=== PATIENT | female | born 1940 | race Caucasian/White ===

== ENCOUNTER 2017-03-31 13:53 | Outpatient (CLI) | payer MEDICARE ==
[2017-03-31 15:54] LABS: ALT (SGPT) 12 U/L (8-55); AST (SGOT) 12 U/L (5-34); Alkaline Phosphatase 47 U/L (40-150); Anion Gap 13 mmol/L (10-20); BUN (Urea Nitrogen) 21 mg/dL (9.8-20.1); Bilirubin, Total Less than 0.3 mg/dL (0.2-1.2); Calc. Creatinine Clearance 0 mL/min (70-130); Calcium 9.5 mg/dL (7.8-10.44); Carbon Dioxide 24 mmol/L (23-31); Cardiac Risk 4.2 (Less than 4.5); Chloride 103 mmol/L (98-107); Cholesterol 167 mg/dl (< 200 Desired); Estimated GFR-MDRD 67; Globulin 3.2 g/dL (2.4-3.5); Glucose 103 mg/dL (83-110); HDL Cholesterol 40 mg/dL (>60 Neg Risk); LDL Cholesterol, Calculated 89 mg/dL; Potassium 4.3 mmol/L (3.5-5.1); Protein, Total 7.2 g/dL (6.0-8.3); Sodium 136 mmol/L (136-145); Triglycerides 188 mg/dL (Less than 150)
[2017-03-31 16:17] LABS: Free T4 (Free Thyroxine) 1.03 ng/dL (0.70-1.48); Thyroid Stimulating Hormone 2.2695 uIU/mL (0.35-4.94)
[2017-03-31 16:53] LABS: Mean Corpuscular Hemoglobin 27.5 pg (27.0-31.0); Mean Platelet Volume 8.8 fL (7.4-10.4); Platelet Count 236 thou/uL (130-400); RBC Distribution Width 16.3 % (11.5-14.5); Red Blood Cell (RBC) Count 4.01 mill/uL (4.20-5.40); White Blood Cell (WBC) Count 7.8 thou/uL (4.8-10.8)
[2017-04-01 11:13] LABS: Clarity Hazy (Clear); Glucose, Urine (Dipstick) Negative (Negative); Leukocyte Moderate (Negative); Nitrite Positive (Negative); Protein, Urine (Dipstick) Negative (Neg-Trace); Specific Gravity, Urine 1.015 (1.005-1.030); pH, Urine 6.5 (5.0-9.0)
[2017-04-01 11:14] LABS: Bilirubin Negative (Negative); Blood, Urine Trace (Negative); Urobilinogen 0.2 mg/dL (0.2-1.0)
== END 2017-03-31 13:54 | disposition home or self-care (01) ==
LOC: MADLAB 13:53
PROVIDERS: ATTEND Nurse Practitioner Family
DX: E03.9 Hypothyroidism, unspecified (principal); I10 Essential (primary) hypertension; E55.9 Vitamin D deficiency, unspecified; D50.9 Iron deficiency anemia, unspecified; I82.492 Acute embolism and thrombosis of other specified deep vein of left lower extremity
CPT/HCPCS: 36415; 80053; 80061; 81003; 82306; 82728; 84439; 84443; 85027

== ENCOUNTER 2017-04-15 16:15 | Outpatient (CLI) | payer MEDICARE | END 2017-04-15 16:16 | disposition home or self-care (01) | LOC: MADLAB 16:15 | PROVIDERS: ATTEND Nurse Practitioner Family | DX: N39.0 Urinary tract infection, site not specified (principal) | CPT/HCPCS: 87077; 87086; 87186 ==

== ENCOUNTER 2017-05-03 10:39 | Outpatient (CLI) | payer MEDICARE ==
[2017-05-03 11:35] LABS: #Eosinphils 0.1 thou/uL (0.0-0.7); #Lymphocytes 1.1 thou/uL (1.20-3.40); #Monocytes 0.6 thou/uL (0.11-0.59); #Neutrophils 3.7 thou/uL (1.40-6.50); %Basophils 0.4 % (0.0-1.0); %Eosinophils 0.9 % (0.0-10.0); %Lymphocytes 19.4 % (21.0-51.0); %Monocytes 11.1 % (0.0-10.0); %Neutrophils 68.2 % (42.0-75.0); Hemoglobin 7.9 g/dL (12.0-16.0); Mean Corpuscular HGB CONC 31.2 g/dL (32.0-36.0); Mean Corpuscular Hemoglobin 26.2 pg (27.0-31.0); Mean Corpuscular Volume 84.1 fl (81.0-99.0); Mean Platelet Volume 8.7 fL (7.4-10.4); Platelet Count 233 thou/uL (130-400); RBC Distribution Width 16.3 % (11.5-14.5); White Blood Cell (WBC) Count 5.5 thou/uL (4.8-10.8)
== END 2017-05-03 10:40 | disposition home or self-care (01) ==
LOC: MADLAB 10:39
PROVIDERS: ATTEND Nurse Practitioner Acute Care
DX: D50.9 Iron deficiency anemia, unspecified (principal); I82.492 Acute embolism and thrombosis of other specified deep vein of left lower extremity
CPT/HCPCS: 36415; 82728; 85025

== ENCOUNTER 2017-08-15 10:20 | Outpatient (CLI) | payer MEDICARE ==
[2017-08-15 10:53] LABS: #Eosinphils 0.1 thou/uL (0.0-0.7); #Lymphocytes 1.2 thou/uL (1.20-3.40); #Monocytes 0.6 thou/uL (0.11-0.59); #Neutrophils 4.7 thou/uL (1.40-6.50); %Basophils 0.4 % (0.0-1.0); %Eosinophils 1.5 % (0.0-10.0); %Lymphocytes 18.1 % (21.0-51.0); %Monocytes 8.9 % (0.0-10.0); %Neutrophils 71.1 % (42.0-75.0); Hemoglobin 9.3 g/dL (12.0-16.0); Mean Corpuscular HGB CONC 32.2 g/dL (32.0-36.0); Mean Corpuscular Hemoglobin 26.8 pg (27.0-31.0); Mean Corpuscular Volume 83.2 fl (81.0-99.0); Mean Platelet Volume 8.7 fL (7.4-10.4); Platelet Count 232 thou/uL (130-400); RBC Distribution Width 16.3 % (11.5-14.5); Red Blood Cell (RBC) Count 3.47 mill/uL (4.20-5.40); White Blood Cell (WBC) Count 6.7 thou/uL (4.8-10.8)
[2017-08-15 12:14] LABS: Hemoglobin A1c 4.9 % (4.0-6.0)
== END 2017-08-15 10:21 | disposition home or self-care (01) ==
LOC: MADLAB 10:20
PROVIDERS: ATTEND Nurse Practitioner Acute Care
DX: R73.01 Impaired fasting glucose (principal)
CPT/HCPCS: 36415; 82728; 83036; 85025

== ENCOUNTER 2017-08-19 09:28 | Emergency (ER) | payer MEDICARE ==
[2017-08-19 10:35] LABS: Bilirubin Negative (Negative); Blood, Urine Trace (Negative); Clarity Clear (Clear); Glucose, Urine (Dipstick) Negative (Negative); Leukocyte Negative (Negative); Nitrite Positive (Negative); Protein, Urine (Dipstick) Negative (Neg-Trace); Specific Gravity, Urine 1.025 (1.005-1.030); Urobilinogen 0.2 mg/dL (0.2-1.0); pH, Urine 5.5 (5.0-9.0)
[2017-08-19 10:36] LABS: Bacteria/HPF 2+ HPF (None Seen); RBC/HPF 0-3 HPF (0-3); WBC/HPF 0-3 HPF (0-3)
--- NOTE | 2017-08-19 12:05 | RAD ---
RIGHT KNEE 4 VIEWS: HISTORY: Right knee pain. FINDINGS/IMPRESSION: Degenerative changes are present, most prominent in the lateral tibial femoral compartment. No acut e fracture or dislocation is identified. There is fullness in the suprapatellar space suggestive of a joint effusion. POS: OFF
--- NOTE | 2017-08-19 12:08 | RAD ---
LEFT KNEE FOUR VIEWS: HISTORY: Left knee pain. FINDINGS: Degenerative changes are present, manifested by osteophyte formation and joint space narrowing in al l three compartments of the joint space. No fracture, dislocation, or bony destruction is seen. IMPRESSION: Left knee osteoarthritis. POS: OFF
== END 2017-08-19 12:35 | disposition home or self-care (01) ==
LOC: MADERS 09:28
DX: Z04.3 Encounter for examination and observation following other accident (principal); M25.562 Pain in left knee; M25.561 Pain in right knee; E05.90 Thyrotoxicosis, unspecified without thyrotoxic crisis or storm; D64.9 Anemia, unspecified; I10 Essential (primary) hypertension; F41.9 Anxiety disorder, unspecified; F32.9 Major depressive disorder, single episode, unspecified; Z87.891 Personal history of nicotine dependence; Z79.899 Other long term (current) drug therapy; Z86.718 Personal history of other venous thrombosis and embolism
CPT/HCPCS: 81003; 81015; A4353

== ENCOUNTER 2018-07-03 14:47 | Emergency (ER) | payer MEDICARE ==
[2018-07-03] MEDS ORDERED: Clindamycin/D5W 600 mg/50 ml Premix Bag ONE (15:49)
[2018-07-03] MEDS ORDERED: Enoxaparin Sodium 40 MG/0.4 ML SYRINGE ONE (15:49)
[2018-07-03] MEDS ORDERED: Enoxaparin Sodium 60 MG/0.6 ML SYRINGE ONE (15:49)
[2018-07-03 15:55] LABS: Anion Gap 14 mmol/L (10-20); BUN (Urea Nitrogen) 19 mg/dL (9.8-20.1); Calc. Creatinine Clearance 0 mL/min (70-130); Calcium 9.6 mg/dL (7.8-10.44); Carbon Dioxide 25 mmol/L (23-31); Chloride 106 mmol/L (98-107); Estimated GFR-MDRD 64; Glucose 107 mg/dL (83-110); Potassium 4.9 mmol/L (3.5-5.1); Sodium 140 mmol/L (136-145)
[2018-07-03 15:57] LABS: #Basophils 0.1 thou/uL (0.0-0.2); #Eosinphils 0.1 thou/uL (0.0-0.7); #Lymphocytes 1.3 thou/uL (1.20-3.40); #Monocytes 0.7 thou/uL (0.11-0.59); #Neutrophils 7.2 thou/uL (1.40-6.50); %Basophils 0.7 % (0.0-1.0); %Eosinophils 1.2 % (0.0-10.0); %Lymphocytes 13.8 % (21.0-51.0); %Monocytes 7.8 % (0.0-10.0); %Neutrophils 76.5 % (42.0-75.0); Anisocytosis SLIGHT = 6-15 cells (100X) (0-5/hpf); Hemoglobin 8.3 g/dL (12.0-16.0); MDiff Complete? YES; Mean Corpuscular HGB CONC 31.5 g/dL (32.0-36.0); Mean Corpuscular Hemoglobin 26.4 pg (27.0-31.0); Mean Corpuscular Volume 83.8 fL (78.0-98.0); Mean Platelet Volume 8.1 fL (7.4-10.4); PLT Morphology Comment Appears Adequate; Platelet Count 281 thou/uL (130-400); RBC Distribution Width 21.7 % (11.5-14.5); Red Blood Cell (RBC) Count 3.16 mill/uL (4.20-5.40); White Blood Cell (WBC) Count 9.4 thou/uL (4.8-10.8)
== END 2018-07-03 17:45 | disposition short-term general hospital (02) ==
LOC: MADERS 14:47
DX: D64.9 Anemia, unspecified (principal); I10 Essential (primary) hypertension; F41.9 Anxiety disorder, unspecified; F32.9 Major depressive disorder, single episode, unspecified; E05.90 Thyrotoxicosis, unspecified without thyrotoxic crisis or storm; Z87.891 Personal history of nicotine dependence; Z86.718 Personal history of other venous thrombosis and embolism; Z79.899 Other long term (current) drug therapy
CPT/HCPCS: 36415; 80048; 83605; 85025; 87040; 96365; 96372; J1650; J3490

== ENCOUNTER 2018-10-04 15:17 | Outpatient (CLI) | payer MEDICARE ==
[2018-10-04 16:18] LABS: Anisocytosis SLIGHT = 6-15 cells (100X) (0-5/hpf); Band 1 % (5-11); Eosinophils 1 % (0-10); Hemoglobin 10.4 g/dL (12.0-16.0); Large Platelets SLIGHT; Lymphocytes 1 % (21-51); MDiff Complete? YES; Mean Corpuscular HGB CONC 30.9 g/dL (32.0-36.0); Mean Corpuscular Hemoglobin 27.7 pg (27.0-31.0); Mean Corpuscular Volume 89.5 fL (78.0-98.0); Mean Platelet Volume 10.8 fL (7.4-10.4); Monocytes 14 % (0-10); Neutrophil 80 % (42-75); PLT Morphology Comment Appears Adequate; Platelet Count 208 thou/uL (130-400); Reactive Lymphocytes 3 % (0-10); Red Blood Cell (RBC) Count 3.74 mill/uL (4.20-5.40); White Blood Cell (WBC) Count 8.3 thou/uL (4.8-10.8)
== END 2018-10-04 15:18 | disposition home or self-care (01) ==
LOC: MADLAB 15:17
PROVIDERS: ATTEND Nurse Practitioner Acute Care
DX: D50.0 Iron deficiency anemia secondary to blood loss (chronic) (principal)
CPT/HCPCS: 36415; 85025

== ENCOUNTER 2018-10-20 12:42 | Outpatient (CLI) | payer MEDICARE ==
[2018-10-20 13:15] LABS: Hemoglobin 11.4 g/dL (12.0-16.0); Mean Corpuscular HGB CONC 31.3 g/dL (32.0-36.0); Mean Corpuscular Hemoglobin 27.3 pg (27.0-31.0); Mean Corpuscular Volume 87.1 fL (78.0-98.0); Mean Platelet Volume 8.4 fL (7.4-10.4); Platelet Count 284 thou/uL (130-400); RBC Distribution Width 17.8 % (11.5-14.5); Red Blood Cell (RBC) Count 4.19 mill/uL (4.20-5.40); White Blood Cell (WBC) Count 7.3 thou/uL (4.8-10.8)
== END 2018-10-20 12:43 | disposition home or self-care (01) ==
LOC: MADLAB 12:42
PROVIDERS: ATTEND Nurse Practitioner Acute Care
DX: D50.0 Iron deficiency anemia secondary to blood loss (chronic) (principal)
CPT/HCPCS: 85027

== ENCOUNTER 2018-11-03 13:24 | Outpatient (CLI) | payer MEDICARE ==
[2018-11-03 14:14] LABS: Hemoglobin 9.2 g/dL (12.0-16.0); Mean Corpuscular HGB CONC 32.4 g/dL (32.0-36.0); Mean Corpuscular Hemoglobin 28.7 pg (27.0-31.0); Mean Corpuscular Volume 88.5 fL (78.0-98.0); Mean Platelet Volume 10.3 fL (7.4-10.4); Platelet Count 163 thou/uL (130-400); RBC Distribution Width 17.4 % (11.5-14.5); Red Blood Cell (RBC) Count 3.21 mill/uL (4.20-5.40); White Blood Cell (WBC) Count 8.2 thou/uL (4.8-10.8)
== END 2018-11-03 13:25 | disposition home or self-care (01) ==
LOC: MADLAB 13:24
PROVIDERS: ATTEND Nurse Practitioner Acute Care
DX: D50.0 Iron deficiency anemia secondary to blood loss (chronic) (principal)
CPT/HCPCS: 36415; 85027

== ENCOUNTER 2018-11-11 14:55 | Emergency (ER) | payer MEDICARE ==
[2018-11-11 16:01] LABS: #Lymphocytes 1.1 thou/uL (1.20-3.40); #Monocytes 0.5 thou/uL (0.11-0.59); #Neutrophils 9.5 thou/uL (1.40-6.50); %Basophils 0.3 % (0.0-1.0); %Eosinophils 0.3 % (0.0-10.0); %Lymphocytes 9.8 % (21.0-51.0); %Monocytes 4.5 % (0.0-10.0); %Neutrophils 85.1 % (42.0-75.0); Hemoglobin 10.6 g/dL (12.0-16.0); Mean Corpuscular HGB CONC 30.5 g/dL (32.0-36.0); Mean Corpuscular Hemoglobin 27.7 pg (27.0-31.0); Mean Corpuscular Volume 90.9 fL (78.0-98.0); Platelet Count 235 thou/uL (130-400); RBC Distribution Width 17.4 % (11.5-14.5); Red Blood Cell (RBC) Count 3.85 mill/uL (4.20-5.40); White Blood Cell (WBC) Count 11.1 thou/uL (4.8-10.8)
[2018-11-11 16:06] LABS: Bilirubin Negative (Negative); Blood, Urine Moderate (Negative); Glucose, Urine (Dipstick) Negative (Negative); Leukocyte Small (Negative); Nitrite Positive (Negative); Protein, Urine (Dipstick) 30 mg/dL (Neg-Trace); Urobilinogen 0.2 mg/dL (0.2-1.0); pH, Urine 5.5 (5.0-9.0)
[2018-11-11 16:10] LABS: Clarity Hazy (Clear)
[2018-11-11 16:11] LABS: Bacteria/HPF 2+ HPF (None Seen); Specific Gravity, Urine 1.032 (1.002-1.036); Squamous Epithelial 0-3 HPF (0-3)
[2018-11-11 16:16] LABS: ALT (SGPT) 12 U/L (8-55); AST (SGOT) 12 U/L (5-34); Albumin 4.2 g/dL (3.4-4.8); Alkaline Phosphatase 57 U/L (40-150); Anion Gap 16 mmol/L (10-20); BUN (Urea Nitrogen) 19 mg/dL (9.8-20.1); Bilirubin, Total 0.2 mg/dL (0.2-1.2); Calc. Creatinine Clearance 0 mL/min (70-130); Calcium 10.3 mg/dL (7.8-10.44); Carbon Dioxide 22 mmol/L (23-31); Chloride 108 mmol/L (98-107); Estimated GFR-MDRD 36; Globulin 3.1 g/dL (2.4-3.5); Glucose 132 mg/dL (83-110); Lipase 37 U/L (8-78); Potassium 4.4 mmol/L (3.5-5.1); Protein, Total 7.3 g/dL (6.0-8.3); Sodium 142 mmol/L (136-145)
[2018-11-11] MEDS ORDERED: Morphine 4 MG/ML VIAL ONE (16:25)
[2018-11-11] MEDS ORDERED: HYDROcodone/Acetaminophen 10/325 mg Tablet ONE (16:28)
--- NOTE | 2018-11-11 17:03 | CT ---
ABDOMEN AND PELVIC CT SCAN WITHOUT IV CONTRAST: 11/11/18 HISTORY: Abdominal pain. COMPARISON: 04/10/18. FINDINGS: Moderate to large hiatal hernia. Multiple liver cysts. Status post cholecystectomy with dilatation of the common bile duct but no significant intrahepatic ductal dilatation. Pancreas and spleen are unre markable. Evidence for bilateral adrenal adenomas up to approximately 2.5 cm. Nonobstructing right re nal calculus with a small 0.3 cm diameter obstructing proximal right ureteral calculus with some prox imal renal hydronephrosis. No evidence for left renal calculus or acute obstruction. Fairly extens gregor diffuse colonic diverticulosis without acute diverticulitis. Periumbilical fat containing hernia. Multilevel lumbar spinal canal stenosis. IMPRESSION: 0.3 cm obstructing proximal right ureteral calculus. Mild proximal dilatation and perirenal fat stran ding. Nonobstructing right renal calculus. Colonic diverticulosis without diverticulitis. Moderate to large hiatal hernia. Status post cholecystectomy. Multiple liver cysts. Other findings as above. POS: [facility]
[2018-11-11] MEDS ORDERED: Ciprofloxacin Lactate/D5W 400 mg/200 ml Premix ONE (17:43)
== END 2018-11-11 18:13 | disposition short-term general hospital (02) ==
LOC: MADERS 14:55
DX: N13.2 Hydronephrosis with renal and ureteral calculous obstruction (principal); E05.90 Thyrotoxicosis, unspecified without thyrotoxic crisis or storm; I10 Essential (primary) hypertension; E78.5 Hyperlipidemia, unspecified; D64.9 Anemia, unspecified; Z86.718 Personal history of other venous thrombosis and embolism; Z87.891 Personal history of nicotine dependence; Z86.711 Personal history of pulmonary embolism; Z79.899 Other long term (current) drug therapy
CPT/HCPCS: 36415; 74176; 80053; 81003; 81015; 83605; 83690; 85025; 87040; 87077; 87086; 87149; 87186; 96374; J0744; J2270

== ENCOUNTER 2018-12-25 11:49 | Outpatient (CLI) | payer MEDICARE ==
[2018-12-25 13:25] LABS: #Eosinphils 0.1 thou/uL (0.0-0.7); #Monocytes 0.7 thou/uL (0.11-0.59); %Basophils 0.4 % (0.0-1.0); %Eosinophils 0.9 % (0.0-10.0); %Monocytes 9.2 % (0.0-10.0); %Neutrophils 76.4 % (42.0-75.0); Hemoglobin 5.7 g/dL (12.0-16.0); Mean Corpuscular HGB CONC 29.5 g/dL (32.0-36.0); Mean Platelet Volume 8.6 fL (7.4-10.4); Platelet Count 150 thou/uL (130-400); RBC Distribution Width 18.3 % (11.5-14.5); Red Blood Cell (RBC) Count 2.04 mill/uL (4.20-5.40); White Blood Cell (WBC) Count 7.9 thou/uL (4.8-10.8)
[2018-12-25 13:37] LABS: Hypochromia MODERATE=16-30 cells (100X) (0-5/hpf); Polychromasia MODERATE = 3-4 cells (100X) (0-2/hpf)
== END 2018-12-25 11:50 | disposition home or self-care (01) ==
LOC: MADLAB 11:49
PROVIDERS: ATTEND Nurse Practitioner Acute Care
DX: D50.0 Iron deficiency anemia secondary to blood loss (chronic) (principal)
CPT/HCPCS: 85025

== ENCOUNTER 2019-01-18 13:38 | Outpatient (CLI) | payer MEDICARE ==
[2019-01-18 13:55] LABS: Hemoglobin 11.6 g/dL (12.0-16.0); Mean Corpuscular HGB CONC 29.9 g/dL (32.0-36.0); Mean Corpuscular Hemoglobin 26.4 pg (27.0-31.0); Mean Corpuscular Volume 88.3 fL (78.0-98.0); Mean Platelet Volume 8.8 fL (7.4-10.4); Platelet Count 199 thou/uL (130-400); RBC Distribution Width 16.6 % (11.5-14.5); Red Blood Cell (RBC) Count 4.37 mill/uL (4.20-5.40); White Blood Cell (WBC) Count 7.4 thou/uL (4.8-10.8)
== END 2019-01-18 13:39 | disposition home or self-care (01) ==
LOC: MADLAB 13:38
PROVIDERS: ATTEND Nurse Practitioner Acute Care
DX: D50.0 Iron deficiency anemia secondary to blood loss (chronic) (principal)
CPT/HCPCS: 36415; 85027

== ENCOUNTER 2019-03-13 13:47 | Outpatient (CLI) | payer MEDICARE ==
[2019-03-13 14:22] LABS: Hemoglobin 11.7 g/dL (12.0-16.0); Mean Corpuscular Hemoglobin 26.6 pg (27.0-31.0); Mean Corpuscular Volume 85.8 fL (78.0-98.0); Mean Platelet Volume 8.5 fL (7.4-10.4); Platelet Count 204 thou/uL (130-400); RBC Distribution Width 15.1 % (11.5-14.5); Red Blood Cell (RBC) Count 4.41 mill/uL (4.20-5.40); White Blood Cell (WBC) Count 8.5 thou/uL (4.8-10.8)
== END 2019-03-13 13:48 | disposition home or self-care (01) ==
LOC: MADLAB 13:47
PROVIDERS: ATTEND Nurse Practitioner Acute Care
DX: D50.0 Iron deficiency anemia secondary to blood loss (chronic) (principal)
CPT/HCPCS: 36415; 85027

== ENCOUNTER 2019-05-10 10:44 | Outpatient (CLI) | payer MEDICARE ==
[2019-05-10 11:16] LABS: #Eosinphils 0.1 thou/uL (0.0-0.7); #Lymphocytes 1.1 thou/uL (1.20-3.40); #Monocytes 0.7 thou/uL (0.11-0.59); #Neutrophils 5.1 thou/uL (1.40-6.50); %Basophils 0.4 % (0.0-1.0); %Eosinophils 0.7 % (0.0-10.0); %Lymphocytes 15.5 % (21.0-51.0); %Neutrophils 73.4 % (42.0-75.0); Hemoglobin 12.3 g/dL (12.0-16.0); Mean Corpuscular HGB CONC 32.9 g/dL (32.0-36.0); Mean Corpuscular Volume 85.1 fL (78.0-98.0); Mean Platelet Volume 8.9 fL (7.4-10.4); Platelet Count 180 thou/uL (130-400); Red Blood Cell (RBC) Count 4.39 mill/uL (4.20-5.40); White Blood Cell (WBC) Count 6.9 thou/uL (4.8-10.8)
[2019-05-10 11:28] LABS: ALT (SGPT) 23 U/L (8-55); AST (SGOT) 21 U/L (5-34); Alkaline Phosphatase 57 U/L (40-150); Anion Gap 14 mmol/L (10-20); BUN (Urea Nitrogen) 20 mg/dL (9.8-20.1); Bilirubin, Total 0.3 mg/dL (0.2-1.2); Calc. Creatinine Clearance 0 mL/min (70-130); Calcium 9.4 mg/dL (7.8-10.44); Carbon Dioxide 26 mmol/L (23-31); Cardiac Risk 2.7 (Less than 4.5); Chloride 109 mmol/L (98-107); Cholesterol 108 mg/dl (< 200 Desired); Estimated GFR-MDRD 58; Globulin 2.7 g/dL (2.4-3.5); Glucose 90 mg/dL (83-110); HDL Cholesterol 40 mg/dL (>60 Neg Risk); LDL Cholesterol, Calculated 39 mg/dL; Potassium 3.8 mmol/L (3.5-5.1); Protein, Total 6.7 g/dL (6.0-8.3); Sodium 145 mmol/L (136-145); Triglycerides 145 mg/dL (Less than 150)
[2019-05-10 11:40] LABS: Thyroid Stimulating Hormone 0.947 uIU/mL (0.35-4.94)
[2019-05-10 17:48] LABS: Iron 71 ug/dL (50-170)
[2019-05-10 17:58] LABS: Ferritin 23.79 ng/mL (10-291)
== END 2019-05-10 10:45 | disposition home or self-care (01) ==
LOC: MADLABBHPM 10:44
PROVIDERS: ATTEND Family Medicine
DX: E78.5 Hyperlipidemia, unspecified (principal); E03.9 Hypothyroidism, unspecified; Z79.01 Long term (current) use of anticoagulants
CPT/HCPCS: 36415; 80053; 80061; 82728; 83540; 84443; 85025

== ENCOUNTER 2019-08-01 13:53 | Outpatient (CLI) | payer MEDICARE ==
[2019-08-01 14:33] LABS: Mean Corpuscular HGB CONC 30.7 g/dL (32.0-36.0); Mean Corpuscular Hemoglobin 25.7 pg (27.0-31.0); Mean Corpuscular Volume 83.7 fL (78.0-98.0); Mean Platelet Volume 8.8 fL (7.4-10.4); Platelet Count 185 thou/uL (130-400); RBC Distribution Width 14.5 % (11.5-14.5); Red Blood Cell (RBC) Count 3.11 mill/uL (4.20-5.40); White Blood Cell (WBC) Count 6.9 thou/uL (4.8-10.8)
== END 2019-08-01 13:54 | disposition home or self-care (01) ==
LOC: MADLAB 13:53
PROVIDERS: ATTEND Internal Medicine Hematology & Oncology
DX: D50.0 Iron deficiency anemia secondary to blood loss (chronic) (principal)
CPT/HCPCS: 36415; 85027

== ENCOUNTER 2019-09-04 10:37 | Outpatient (CLI) | payer MEDICARE ==
[2019-09-04 11:00] LABS: Anion Gap 16 mmol/L (10-20); BUN (Urea Nitrogen) 14 mg/dL (9.8-20.1); Calc. Creatinine Clearance 0 mL/min (70-130); Calcium 9.8 mg/dL (7.8-10.44); Carbon Dioxide 25 mmol/L (23-31); Chloride 108 mmol/L (98-107); Estimated GFR-MDRD 52; Glucose 147 mg/dL (83-110); Potassium 3.5 mmol/L (3.5-5.1); Sodium 145 mmol/L (136-145)
== END 2019-09-04 10:38 | disposition home or self-care (01) ==
LOC: MADLABBHPM 10:37
PROVIDERS: ATTEND Family Medicine
DX: R60.0 Localized edema (principal)
CPT/HCPCS: 36415; 80048

== ENCOUNTER 2019-11-24 21:55 | Emergency (ER) | payer MEDICARE ==
[2019-11-24 22:45] LABS: #Lymphocytes 1.2 thou/uL (1.20-3.40); #Monocytes 0.6 thou/uL (0.11-0.59); %Basophils 0.4 % (0.0-1.0); %Eosinophils 0.4 % (0.0-10.0); %Lymphocytes 14.9 % (21.0-51.0); %Monocytes 7.8 % (0.0-10.0); %Neutrophils 76.5 % (42.0-75.0); Hemoglobin 12.5 g/dL (12.0-16.0); Mean Corpuscular HGB CONC 30.9 g/dL (32.0-36.0); Mean Corpuscular Hemoglobin 27.3 pg (27.0-31.0); Mean Corpuscular Volume 88.3 fL (78.0-98.0); Mean Platelet Volume 9.4 fL (7.4-10.4); Platelet Count 196 thou/uL (130-400); RBC Distribution Width 12.6 % (11.5-14.5); Red Blood Cell (RBC) Count 4.58 mill/uL (4.20-5.40); White Blood Cell (WBC) Count 7.9 thou/uL (4.8-10.8)
[2019-11-24 22:59] LABS: ALT (SGPT) 21 U/L (8-55); AST (SGOT) 18 U/L (5-34); Albumin 3.9 g/dL (3.4-4.8); Alkaline Phosphatase 69 U/L (40-110); Anion Gap 14 mmol/L (10-20); BUN (Urea Nitrogen) 16 mg/dL (9.8-20.1); Bilirubin, Total 0.3 mg/dL (0.2-1.2); Calc. Creatinine Clearance 0 mL/min (70-130); Calcium 9.3 mg/dL (7.8-10.44); Carbon Dioxide 23 mmol/L (23-31); Chloride 109 mmol/L (98-107); Estimated GFR-MDRD 65; Globulin 2.6 g/dL (2.4-3.5); Glucose 119 mg/dL (83-110); Lipase 79 U/L (8-78); Potassium 3.3 mmol/L (3.5-5.1); Protein, Total 6.5 g/dL (6.0-8.3); Sodium 143 mmol/L (136-145)
--- NOTE | 2019-11-24 23:02 | CT ---
Exam: Abdomen CT without contrast Pelvic CT without contrast HISTORY: Abdominal pain. COMPARISON: 11/11/2018 FINDINGS: Abdomen CT: Lung bases:Chronic changes Heart size: Normal heart size Aorta: Atherosclerosis of a nonaneurysmal aorta Solid organs: Limited evaluation of the lack of IV contrast. Stable hypodensity in the liver, compati ble with 1.9 cm cyst. Spleen and pancreas have appropriate attenuation Hypoattenuation of the right adrenal gland with attenuation coefficient of 3 Hounsfield units, compat ible with an adenoma. Hypoattenuation of the left adrenal gland with attenuation coefficient of -6 Hounsfield units is also compatible with adenoma. Lymph nodes: No gastrohepatic, retrocrural or periportal lymphadenopathy Gallbladder: Surgically absent Mesentery: No mass, lymphadenopathy, free air or free fluid line anterior abdominal wall: Redemonstra tion of ventral abdominal wall hernia containing mesenteric fat. No evidence of bowel herniation. Kidneys: Nonobstructing punctate calculi in the right renal pelvis. Bilaterally no hydronephrosis or perinephric fat stranding. Bilateral ureters have a normal caliber. No hydroureter, periureteral fat stranding or ureterolithiasis. Previously noted calculus in the proximal right ureter appears to have passed and is no longer present in the ureter. Alimentary canal: Limited evaluation by the lack of oral contrast. No evidence of bowel obstruction. Extensive diverticulosis, without evidence of diverticulitis. Appendix is not appreciated. Large hiatal hernia is redemonstrated. CT PELVIS: No mass, adenopathy, free air or free fluid. Surgically absent uterus. Urinary bladder: No evidence of a bladder calculus. Osseous structures: Chronic changes. IMPRESSION: Interval passage of a previously noted proximal right ureteral calculus. Currently, no evidence of ob structive uropathy. Transcribed Date/Time: 11/24/2019 11:53 PM
== END 2019-11-24 23:50 | disposition home or self-care (01) ==
LOC: MADERS 21:55
DX: R10.31 Right lower quadrant pain (principal); R10.811 Right upper quadrant abdominal tenderness; E03.9 Hypothyroidism, unspecified; E78.5 Hyperlipidemia, unspecified; E78.00 Pure hypercholesterolemia, unspecified; I10 Essential (primary) hypertension; D64.9 Anemia, unspecified; E05.90 Thyrotoxicosis, unspecified without thyrotoxic crisis or storm; F41.9 Anxiety disorder, unspecified; F32.9 Major depressive disorder, single episode, unspecified; Z86.718 Personal history of other venous thrombosis and embolism; Z86.711 Personal history of pulmonary embolism; Z87.891 Personal history of nicotine dependence; Z79.899 Other long term (current) drug therapy; Z79.02 Long term (current) use of antithrombotics/antiplatelets
CPT/HCPCS: 36415; 74176; 80053; 83690; 85025

== ENCOUNTER 2019-12-03 15:00 | Inpatient (IN) | payer MEDICARE ==
[2019-12-03 15:58] VITALS: BMI 39.4
[2019-12-03] MEDS: HYDROcodone/Acetaminophen 10/325 mg Tablet PO PRN (17:48)
[2019-12-03] MEDS ORDERED: Senokot S 8.6-50 MG TAB PO PRN (18:20)
[2019-12-03 18:32] LABS: #Lymphocytes 1.1 thou/uL (1.20-3.40); #Monocytes 0.9 thou/uL (0.11-0.59); #Neutrophils 7.2 thou/uL (1.40-6.50); %Basophils 0.3 % (0.0-1.0); %Eosinophils 0.4 % (0.0-10.0); %Monocytes 9.4 % (0.0-10.0); %Neutrophils 77.8 % (42.0-75.0); Hemoglobin 12.8 g/dL (12.0-16.0); Mean Corpuscular HGB CONC 30.5 g/dL (32.0-36.0); Mean Corpuscular Hemoglobin 26.8 pg (27.0-31.0); Mean Corpuscular Volume 88.1 fL (78.0-98.0); Mean Platelet Volume 9.3 fL (7.4-10.4); Platelet Count 220 thou/uL (130-400); RBC Distribution Width 12.8 % (11.5-14.5); Red Blood Cell (RBC) Count 4.76 mill/uL (4.20-5.40); White Blood Cell (WBC) Count 9.2 thou/uL (4.8-10.8)
[2019-12-03 18:46] LABS: ALT (SGPT) 14 U/L (8-55); AST (SGOT) 13 U/L (5-34); Albumin 3.9 g/dL (3.4-4.8); Alkaline Phosphatase 80 U/L (40-110); Anion Gap 14 mmol/L (10-20); BUN (Urea Nitrogen) 11 mg/dL (9.8-20.1); Bilirubin, Total 0.4 mg/dL (0.2-1.2); Calc. Creatinine Clearance 97 mL/min (70-130); Calcium 9.4 mg/dL (7.8-10.44); Carbon Dioxide 27 mmol/L (23-31); Chloride 106 mmol/L (98-107); Estimated GFR-MDRD 69; Globulin 2.7 g/dL (2.4-3.5); Glucose 123 mg/dL (83-110); Potassium 3.5 mmol/L (3.5-5.1); Protein, Total 6.6 g/dL (6.0-8.3); Sodium 143 mmol/L (136-145)
--- NOTE | 2019-12-03 19:50 | CT ---
CT LUMBAR SPINE WITHOUT CONTRAST: Comparison: 11-24-2019 History: Intractable low back pain. Technique: Multiple contiguous axial images were obtained in a CT of the lumbar spine without contras t. Sagittal and coronal reformats were performed. FINDINGS: There is a wedge compression deformity of the L2 vertebral body. This was not seen on the prior exami nation and has developed in the interim. This predominately involves the superior endplate of the hi tebral body. This demonstrates approximately 25% height loss. Vertebral bodies demonstrate normal ali gnment without subluxation. Degenerative changes are seen throughout the cervical spine. These are mo re prominent in the lower thoracic spine and at the thoracolumbar junction. Subtle retropulsion of the superior endplate of the L2 vertebral body in the central canal is seen ca using mild central canal stenosis. No bony narrowing of the upper lumbar neural foramina are seen. Th ere is moderate bilateral bony narrowing of the neural foramina at L5-S1, right greater than left. There is a moderate hiatal hernia. There are bilateral adrenal masses which demonstrate Hounsfield un it values consistent with fat containing adrenal adenomas. Scattered diverticula are seen in the colo n. The other prevertebral and paraspinal soft tissues are unremarkable. IMPRESSION: 1. Interval development of L2 compression deformity. This may be cause of the patient's acute back pa in. 2. Diverticulosis. 3. Bilateral fat containing adrenal adenomas. POS: [facility]
[2019-12-03] MEDS: Apixaban 5 MG TAB PO SCH (20:39)
[2019-12-03] MEDS: Atorvastatin Calcium 10 MG TAB PO SCH (20:39)
[2019-12-03] MEDS: DULoxetine 30 MG CAP PO SCH (20:40)
[2019-12-03] MEDS: Cyclobenzaprine 10 MG TAB PO PRN (20:40)
--- NOTE | 2019-12-04 01:06 | HP ---
REASON FOR ADMISSION: Intractable low back pain and general weakness. HISTORY OF THE PRESENT ILLNESS AND HOSPITAL COURSE: Ms. Shane is a very pleasant 79-year-old female with history of hypertension, hypothyroidism, depression, anxiety, and dyslipidemia. Family reports that the patient has been notably depressed since her spouse's about three months ago. Her SSRI was recently adjusted in the clinic, but does not seem to be helping much. Lately, she had been complaining of low back pain that has progressively worsened over the past couple of weeks. The patient has been in the ER couple times this past week secondary to the pain. She was initially seen on 11/24/2019, at [place] due to reported abdominal pain but actually referring to the low back pain. CT of the pelvis and abdomen at that time was unremarkable. The patient was sent home with a diagnosis of abdominal right lower quadrant pain and right flank pain. She was given tramadol that she took for few days. Family reports that the patient's tramadol did not help much at all. So, the patient went back on 11/28/2019, when she completed her three-day course of tramadol. On her second ER visit, she was diagnosed with UTI and was started on Levaquin that she took for 4 days. Per family, the patient had completed the oral antibiotic, but does not help much. The patient still complains of debilitating pain reported at 10/10 in intensity. Family reports that she has not been moving much at all as she could hardly get up from her chair or bed. The patient could not tolerate going to the bathroom at all, and she pees and defecates in her underwear, making it hard for the family to take care of the patient at this time at home. Per family, the patient's home health therapies, both PT and OT, were already canceled as the patient would not cooperate at all. She was initially seen in the clinic today. When seen, she was wheelchair bound, awake, alert, and able to express her concerns. She admits that she is definitely depressed but trying to move on her own. There was no significant fall, trauma, or injury reported lately. She is voiding freely, afebrile, eating with good urine output. PAST MEDICAL HISTORY: Hyperlipidemia; hypertension; history of breast cancer, treated with surgery; history of pulmonary embolism, on long-term use of anticoagulation/Eliquis; history of PE and DVT, recurrent, on long-term use of Eliquis; hypothyroidism; anemia; and diverticulitis. PAST SURGICAL HISTORY: Appendectomy, cholecystectomy, renal stent, hemorrhoidectomy, hysterectomy, mastectomy of the left breast, lumpectomy of the right side, left shoulder surgery, thyroidectomy, tonsillectomy, left ankle broken surgery, hernia repair, and skin cancer removal. SOCIAL HISTORY: The patient is . She lives with her daughter, Mounika, who is the primary cut off saw tender metal. She denies smoking, illicit drug use, or alcohol use. FAMILY HISTORY: Noncontributory. ALLERGIES: 1. TO AMOXICILLIN, ASPIRIN, CEPHALEXIN, CODEINE, BUT COULD TOLERATE HYDROCODONE PER DAUGHTER. 2. NSAIDS, PENICILLIN, AND PHENAZOPYRIDINE (RASH). 3. SULFA DRUGS, RASH. CURRENT MEDICATIONS: 1. Levothyroxine 137 mcg p.o. q.a.m. 2. Hydrochlorothiazide 12.5 mg p.o. daily. 3. Iron 325 mg two b.i.d. 4. Eliquis 2.5 mg p.o. b.i.d. 5. Colestipol 2 g daily. 6. Multivitamins one tablet p.o. daily. 7. Atorvastatin 20 mg p.o. at bedtime. REVIEW OF SYSTEMS: GENERAL: Denies fever or chills. Reports general weakness, fatigue, and nocturnal pain. HEENT: No acute visual changes or hearing changes. RESPIRATORY: No shortness of breath, wheezing, chronic cough, sputum production, or bloody sputum. GI: No nausea, vomiting, or abdominal pain. Reports chronic diarrhea now with constipation. Denies rectal bleeding, melena, hematemesis, or hematochezia. GENITOURINARY: No dysuria, hematuria, frequency, or urgency. Reports incontinence. MUSCULOSKELETAL: Reports low back pain. Denies joint effusion or swelling. NEURO: No focal numbness, focal weakness, seizure, tics, or tremors. PSYCH: Reports depression and anxiety. Denies hallucinations, suicidal thoughts, ideations, or plans. SKIN: No rashes. No lesions. PHYSICAL EXAMINATION: VITAL SIGNS: Blood pressure 197/79, temperature 98.1, pulse 55, respirations 20, and O2 sats 95%. Weight 237 pounds. Height 5 feet 5 inches. GENERAL: The patient is awake, alert, and oriented x3, uncomfortable secondary to pain, lying in bed, not in acute distress. Daughter, Mounika and son were present at the time of examination. HEENT: Normocephalic, atraumatic. PERRL. Anicteric sclerae. Oral mucosa is moist. Tongue at midline. No tremors. No oral lesions. NECK: Supple. Full range of motion. No swelling. Flat JVD. No bruit. CHEST: Normal excursion. Clear to auscultation bilaterally. CARDIAC: RRR. Normal S1 and S2. ABDOMEN: Obese and soft. Normoactive bowel sounds. Nondistended, nontender. Negative CVA tenderness bilaterally. EXTREMITIES: No edema. No cyanosis. BACK: No significant swelling or evidence of scoliosis. Localized tenderness in the lumbar paraspinals with focal muscle tenderness in lumbar paraspinals. SKIN: Intact. No rash. No petechiae. No purpura. PSYCH: Good eye contact. Appropriate mood and affect. Nonsuicidal. ASSESSMENT AND PLAN: 1. Intractable low back pain. 2. Elevated blood pressure. 3. Lumbar muscle strain. 4. Hypertension; hypothyroidism; dyslipidemia; and history of pulmonary embolism and deep venous thrombosis, on long-term use of Eliquis for anticoagulation. 5. Dyslipidemia. 6. Depression and anxiety. 7. Deconditioning secondary to general weakness. The patient is admitted to [facility] for pain management and possible inpatient therapy. We will continue all current medications as modified per list. We will add narcotic and muscle relaxants for pain as part of pain management. We will start on Cymbalta to cover for both depression and pain control. Of note, the patient reports history of codeine allergy but daughterMounika, who acts as a cut off saw tender metal reports previous history of [place] use with no significant side effects. X-ray of the lumbar and sacrum was ordered. Labs including CBC, CMP, and TSH were ordered. Gastrointestinal prophylaxis with PPI. Deep venous thrombosis prophylaxis not needed secondary to current use of oral anticoagulant. Further recommendations depending on the hospital course. Code status, the patient reports DNAR in front of her family. DaughterMounika, who acts as the MPOA/surrogate decision maker for patient agrees with patient's wishes. Job ID: [id number]
[2019-12-04] MEDS: HYDROcodone/Acetaminophen 10/325 mg Tablet PO PRN ×4 (01:24→21:00)
[2019-12-04 03:44] LABS: Bilirubin Small (Negative); Blood, Urine Moderate (Negative); Clarity Slightly Cloudy (Clear); Glucose, Urine (Dipstick) Negative (Negative); Leukocyte Negative (Negative); Nitrite Negative (Negative); Protein, Urine (Dipstick) 30 mg/dL (Neg-Trace)
[2019-12-04 03:45] LABS: Urine Culture Reflex No No
[2019-12-04 03:49] LABS: Squamous Epithelial 0-3 HPF (0-3); WBC/HPF 0-3 HPF (0-3)
[2019-12-04 03:50] LABS: Bacteria/HPF Rare-Few HPF (None Seen)
[2019-12-04 03:55] LABS: Other Microscopic Description MODERATE MUCUS SEEN
[2019-12-04] MEDS: Cyclobenzaprine 10 MG TAB PO PRN ×3 (05:44→21:00)
[2019-12-04] MEDS: Levothyroxine Sodium 25 MCG TAB PO SCH (05:45)
[2019-12-04] MEDS: Levothyroxine Sodium 112 MCG TAB PO SCH (05:45)
[2019-12-04] MEDS ORDERED: Non-Formulary Item 1 EACH (Levothyroxine Sodium [Levothyroxine Sodium] 137 MCG) PO SCH (06:00)
[2019-12-04] MEDS: Ferrous Gluconate 324 MG TAB PO SCH (07:59)
[2019-12-04] MEDS: Apixaban 5 MG TAB PO SCH ×2 (08:00→21:01)
[2019-12-04] MEDS: Hydrochlorothiazide 25 MG TAB PO SCH (08:00)
[2019-12-04] MEDS: Multivit, Therapeutic 1 TAB PO SCH (08:00)
[2019-12-04] MEDS: DULoxetine 30 MG CAP PO SCH (21:01)
[2019-12-04] MEDS: Atorvastatin Calcium 10 MG TAB PO SCH (21:02)
[2019-12-05] MEDS: HYDROcodone/Acetaminophen 10/325 mg Tablet PO PRN ×2 (01:37→05:03)
[2019-12-05] MEDS: Levothyroxine Sodium 25 MCG TAB PO SCH (05:02)
[2019-12-05] MEDS: Cyclobenzaprine 10 MG TAB PO PRN (05:03)
[2019-12-05] MEDS: Levothyroxine Sodium 112 MCG TAB PO SCH (05:03)
[2019-12-05] MEDS: Ferrous Gluconate 324 MG TAB PO SCH (08:20)
[2019-12-05] MEDS: Apixaban 5 MG TAB PO SCH ×2 (08:20→20:53)
[2019-12-05] MEDS: Multivit, Therapeutic 1 TAB PO SCH (08:20)
[2019-12-05] MEDS: Hydrochlorothiazide 25 MG TAB PO SCH (08:21)
[2019-12-05] MEDS: DULoxetine 30 MG CAP PO SCH (20:54)
[2019-12-05] MEDS: Atorvastatin Calcium 10 MG TAB PO SCH (20:54)
[2019-12-06] MEDS: HYDROcodone/Acetaminophen 10/325 mg Tablet PO PRN ×3 (02:20→12:33)
[2019-12-06] MEDS: Cyclobenzaprine 10 MG TAB PO PRN (02:21)
[2019-12-06] MEDS: Levothyroxine Sodium 112 MCG TAB PO SCH (05:13)
[2019-12-06] MEDS: Levothyroxine Sodium 25 MCG TAB PO SCH (05:13)
[2019-12-06] MEDS ORDERED: predniSONE 20 MG TAB PO SCH (08:00)
[2019-12-06] MEDS: Ferrous Gluconate 324 MG TAB PO SCH (08:14)
[2019-12-06] MEDS: Multivit, Therapeutic 1 TAB PO SCH (08:14)
[2019-12-06] MEDS: Apixaban 5 MG TAB PO SCH (08:15)
[2019-12-06] MEDS: Hydrochlorothiazide 25 MG TAB PO SCH (08:15)
[2019-12-06 09:09] VITALS: BP 107/53; TEMP 97.4
[2019-12-06 13:03] LABS: #Lymphocytes 0.8 thou/uL (1.20-3.40); #Monocytes 0.2 thou/uL (0.11-0.59); #Neutrophils 6.7 thou/uL (1.40-6.50); %Basophils 0.4 % (0.0-1.0); %Eosinophils 0.3 % (0.0-10.0); %Lymphocytes 10.6 % (21.0-51.0); %Monocytes 2.5 % (0.0-10.0); %Neutrophils 86.3 % (42.0-75.0); Hemoglobin 13.2 g/dL (12.0-16.0); Mean Corpuscular Volume 87.1 fL (78.0-98.0); Platelet Count 218 thou/uL (130-400); RBC Distribution Width 12.4 % (11.5-14.5); Red Blood Cell (RBC) Count 4.88 mill/uL (4.20-5.40); White Blood Cell (WBC) Count 7.8 thou/uL (4.8-10.8)
[2019-12-07] MEDS ORDERED: [UNRECOGNIZED DRUG - REMARK] IVPB SCH (09:00)
== END 2019-12-06 15:25 | disposition swing bed (61) | DRG 552 ==
LOC: MADMS 15:00
PROVIDERS: ADMIT Family Medicine; ATTEND Family Medicine
DX: M54.9 Dorsalgia, unspecified (principal); I10 Essential (primary) hypertension; E03.9 Hypothyroidism, unspecified; F32.9 Major depressive disorder, single episode, unspecified; F41.9 Anxiety disorder, unspecified; D64.9 Anemia, unspecified; E78.5 Hyperlipidemia, unspecified; S39.012A Strain of muscle, fascia and tendon of lower back, initial encounter; R53.1 Weakness; R53.81 Other malaise; Z99.3 Dependence on wheelchair; Z85.3 Personal history of malignant neoplasm of breast; Z86.711 Personal history of pulmonary embolism; Z79.01 Long term (current) use of anticoagulants; Z86.718 Personal history of other venous thrombosis and embolism; Z90.49 Acquired absence of other specified parts of digestive tract; Z90.12 Acquired absence of left breast and nipple; Z90.710 Acquired absence of both cervix and uterus; Z88.1 Allergy status to other antibiotic agents; Z88.0 Allergy status to penicillin; Z88.2 Allergy status to sulfonamides
CPT/HCPCS: 36415; 72131; 80053; 81001; 82728; 84443; 85025; J7512

== ENCOUNTER 2019-12-06 12:45 | Inpatient (IN) | payer MEDICARE ==
[2019-12-06 16:10] VITALS: BMI 39.6
[2019-12-06] MEDS: HYDROcodone/Acetaminophen 10/325 mg Tablet PO PRN (17:54)
[2019-12-06] MEDS: Cyclobenzaprine 10 MG TAB PO PRN (17:55)
[2019-12-06] MEDS ORDERED: hydrALAZINE 20 MG/ML VIAL SLOW IVP PRN (20:57)
[2019-12-06] MEDS ORDERED: hydrALAZINE 10 MG TAB PO PRN (21:10)
[2019-12-06] MEDS: Apixaban 5 MG TAB PO SCH (21:33)
[2019-12-06] MEDS: Senokot S 8.6-50 MG TAB PO PRN (21:34)
[2019-12-06] MEDS: Atorvastatin Calcium 10 MG TAB PO SCH (21:34)
[2019-12-07] MEDS ORDERED: Non-Formulary Item 1 EACH (Levothyroxine Sodium [Levothyroxine Sodium] 137 MCG) PO SCH (06:00)
[2019-12-07] MEDS: Levothyroxine Sodium 112 MCG TAB PO SCH (06:02)
[2019-12-07] MEDS: Levothyroxine Sodium 25 MCG TAB PO SCH (06:03)
[2019-12-07] MEDS ORDERED: Sodium Chloride 0.9% 30 ML ONE (08:34)
[2019-12-07] MEDS: Apixaban 5 MG TAB PO SCH ×2 (08:38→20:37)
[2019-12-07] MEDS: DULoxetine 30 MG CAP PO SCH (08:38)
[2019-12-07] MEDS: predniSONE 20 MG TAB PO SCH (08:39)
[2019-12-07] MEDS: Hydrochlorothiazide 25 MG TAB PO SCH (08:40)
[2019-12-07] MEDS: Ferrous Gluconate 324 MG TAB PO SCH (08:41)
[2019-12-07] MEDS: Multivit, Therapeutic 1 TAB PO SCH (08:41)
[2019-12-07] MEDS: HYDROcodone/Acetaminophen 10/325 mg Tablet PO PRN ×2 (08:46→14:07)
[2019-12-07] MEDS ORDERED: Iron, Sodium Ferric Gluconate 125 MG in Sodium Chloride 0.9% 100 ML IVPB SCH (09:00)
[2019-12-07] MEDS ORDERED: Prevnar 13-Val Conj/PF 0.5 ML SYRINGE IM ONE (09:00)
[2019-12-07] MEDS: Senokot S 8.6-50 MG TAB PO PRN (09:19)
[2019-12-07] MEDS ORDERED: Hydrochlorothiazide 25 MG TAB PO SCH (13:45)
[2019-12-07] MEDS ORDERED: hydrALAZINE 25 MG TAB PO SCH (13:45)
[2019-12-07] MEDS: hydrALAZINE 10 MG TAB PO PRN ×2 (14:06→20:38)
[2019-12-07] MEDS: Cyclobenzaprine 10 MG TAB PO PRN (18:06)
[2019-12-07] MEDS: Atorvastatin Calcium 10 MG TAB PO SCH (20:38)
[2019-12-08] MEDS: Levothyroxine Sodium 25 MCG TAB PO SCH (05:21)
[2019-12-08] MEDS: Levothyroxine Sodium 112 MCG TAB PO SCH (05:21)
[2019-12-08 05:48] LABS: Hemoglobin 12.2 g/dL (12.0-16.0); Platelet Count 223 thou/uL (130-400)
[2019-12-08 07:00] VITALS: TEMP 98.3
[2019-12-08] MEDS: HYDROcodone/Acetaminophen 10/325 mg Tablet PO PRN (07:56)
[2019-12-08] MEDS: predniSONE 20 MG TAB PO SCH (07:58)
[2019-12-08] MEDS: DULoxetine 30 MG CAP PO SCH (08:16)
[2019-12-08] MEDS: Ferrous Gluconate 324 MG TAB PO SCH (08:16)
[2019-12-08] MEDS: Multivit, Therapeutic 1 TAB PO SCH (08:16)
[2019-12-08] MEDS: Hydrochlorothiazide 25 MG TAB PO SCH (08:17)
[2019-12-08] MEDS: Apixaban 5 MG TAB PO SCH (08:17)
[2019-12-08 17:09] LABS: #Lymphocytes 0.9 thou/uL (1.20-3.40); #Monocytes 0.6 thou/uL (0.11-0.59); #Neutrophils 9.3 thou/uL (1.40-6.50); %Basophils 0.2 % (0.0-1.0); %Eosinophils 0.1 % (0.0-10.0); %Lymphocytes 8.5 % (21.0-51.0); %Monocytes 5.8 % (0.0-10.0); %Neutrophils 85.5 % (42.0-75.0); Hemoglobin 11.8 g/dL (12.0-16.0); Mean Corpuscular HGB CONC 31.4 g/dL (32.0-36.0); Mean Corpuscular Hemoglobin 27.4 pg (27.0-31.0); Mean Platelet Volume 8.9 fL (7.4-10.4); Platelet Count 244 thou/uL (130-400); RBC Distribution Width 12.3 % (11.5-14.5); Red Blood Cell (RBC) Count 4.31 mill/uL (4.20-5.40); White Blood Cell (WBC) Count 10.8 thou/uL (4.8-10.8)
[2019-12-08 17:46] VITALS: BP 138/72
--- NOTE | 2019-12-11 09:18 | DIS ---
DATE OF ADMISSION: 12/06/2019 DATE OF DISCHARGE: 12/08/2019 FINAL DIAGNOSES: 1. Acute onset of gastrointestinal bleeding, unspecified. 2. 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 3. Chronic iron deficiency requiring iron transfusion every month as followed by auto technician. a. Last infusion received on 12/08/[address] [facility]. SECONDARY DIAGNOSES: 1. Intractable lumbar pain closed compression fracture. 2. Hypothyroidism. 3. Hypertension. 4. Hyperlipidemia. HISTORY OF THE PRESENT ILLNESS AND HOSPITAL COURSE: Ms. Shane is a 79-year-old female with multiple chronic medical conditions including chronic iron deficiency anemia, requiring iron infusion every month and long-term use of Eliquis. The patient was initially admitted to [facility] secondary to intractable low back pain. She was found to have closed lumbar spine compression fracture by CT scan of the spine. The patient was treated for pain management in the hospital. After 3 nights of stay in acute, she was transferred to [facility] for skilled rehab. The patient was doing well in rehab. She started walking some prior to discharge. She had received an iron infusion on 12/08/2019 as per recommendation of ROMEO Shafer auto technician as the patient was due for her routine monthly iron infusion. At that time, patient was asymptomatic. Her vitals have been stable. Her hemoglobin at that time was 12.2 with hematocrit of 38.9 and platelets of 223. Baseline hemoglobin at 13.2 upon admission on 12/06/2021. On 12/08/2019, patient has had a bright red streak stool. The patient was reported to have no BM for the last few days and on that day, she had a big bowel movement. The patient was observed, but reported to have progression of bloody stools and that became melenic. Her repeat hemoglobin at that time went down to 11.8 and 37.5 hematocrit. The patient reported to have cold clammy sweat, but vitals remained stable. The patient was then subsequently transferred to [facility] with a specialist for further evaluation of GI bleeding. PHYSICAL EXAMINATION: VITAL SIGNS: Temperature 98.3, respirations 18, O2 saturations 96%, blood pressure 138/72, pulse rate 60. Job ID: [id number]
== END 2019-12-08 18:25 | disposition short-term general hospital (02) | DRG 560 ==
LOC: MADMS 15:26
PROVIDERS: ADMIT Family Medicine; ATTEND Family Medicine
DX: S32.028D Other fracture of second lumbar vertebra, subsequent encounter for fracture with routine healing (principal); F33.9 Major depressive disorder, recurrent, unspecified; S39.012D Strain of muscle, fascia and tendon of lower back, subsequent encounter; I10 Essential (primary) hypertension; Z86.711 Personal history of pulmonary embolism; Z86.718 Personal history of other venous thrombosis and embolism; E03.9 Hypothyroidism, unspecified; E78.5 Hyperlipidemia, unspecified; F41.9 Anxiety disorder, unspecified; Z85.3 Personal history of malignant neoplasm of breast; Z90.49 Acquired absence of other specified parts of digestive tract; Z90.710 Acquired absence of both cervix and uterus; Z90.12 Acquired absence of left breast and nipple; Z85.89 Personal history of malignant neoplasm of other organs and systems; Z98.890 Other specified postprocedural states; Z88.1 Allergy status to other antibiotic agents; Z88.5 Allergy status to narcotic agent; Z88.0 Allergy status to penicillin; Z88.2 Allergy status to sulfonamides; Z88.8 Allergy status to other drugs, medicaments and biological substances; Z79.01 Long term (current) use of anticoagulants; R26.9 Unspecified abnormalities of gait and mobility; D50.9 Iron deficiency anemia, unspecified
CPT/HCPCS: 36415; 82565; 85014; 85018; 85025; 85049; J2916; J3490; J7512

== ENCOUNTER 2019-12-17 16:10 | Inpatient (IN) | payer MEDICARE ==
[2019-12-17] MEDS ORDERED: Ondansetron ODT 4 MG TAB PO PRN (16:51)
[2019-12-17] MEDS ORDERED: Senokot S 8.6-50 MG TAB PO PRN (16:55)
[2019-12-17] MEDS ORDERED: Polyethylene Glycol 3350 17 GM Packet PO PRN (17:31)
[2019-12-17] MEDS: Cyclobenzaprine 10 MG TAB PO PRN (20:50)
[2019-12-17] MEDS: DULoxetine 30 MG CAP PO SCH (20:50)
[2019-12-17] MEDS: Atorvastatin Calcium 10 MG TAB PO SCH (20:50)
[2019-12-18] MEDS: Levothyroxine Sodium 112 MCG TAB PO SCH (05:29)
[2019-12-18] MEDS: Levothyroxine Sodium 25 MCG TAB PO SCH (05:30)
[2019-12-18] MEDS ORDERED: Non-Formulary Item 1 EACH (Levothyroxine Sodium [Levothyroxine Sodium] 137 MCG) PO SCH (06:00)
[2019-12-18] MEDS: Multivit, Therapeutic 1 TAB PO SCH (08:30)
[2019-12-18] MEDS: Hydrochlorothiazide 25 MG TAB PO SCH (08:31)
[2019-12-18] MEDS ORDERED: Ferrous Gluconate 324 MG TAB PO SCH (09:00)
[2019-12-18] MEDS ORDERED: Prevnar 13-Val Conj/PF 0.5 ML SYRINGE IM ONE (09:00)
[2019-12-18] MEDS ORDERED: FLU VACC TS2019-20(65YR UP)/PF 180 MCG/0.5 ML SYRINGE IM ONE (09:00)
[2019-12-18] MEDS: HYDROcodone/Acetaminophen 10/325 mg Tablet PO PRN (13:23)
[2019-12-18] MEDS: DULoxetine 30 MG CAP PO SCH (20:20)
[2019-12-18] MEDS: Atorvastatin Calcium 10 MG TAB PO SCH (20:20)
[2019-12-19] MEDS: Cyclobenzaprine 10 MG TAB PO PRN ×2 (01:19→20:38)
[2019-12-19] MEDS: Levothyroxine Sodium 25 MCG TAB PO SCH (05:25)
[2019-12-19] MEDS: Levothyroxine Sodium 112 MCG TAB PO SCH (05:25)
--- NOTE | 2019-12-19 07:49 | HP ---
PRIMARY CARE PHYSICIAN: Carmelita Ny MD HISTORY OF PRESENT ILLNESS: Ms. Shane is a 79-year-old female with a history of hypertension, hypothyroidism, depression, anxiety, recurrent DVTs, and chronic anemia, who is being admitted to [facility] for rehabilitation. The patient was discharged on December 17, 2019, from [facility] for lower gastrointestinal bleed, thought to be related to diverticulosis. The patient was previously in skilled, where she was noted to have bright red blood per rectum. She was evaluated in the ER and found to have significant blood loss anemia. She had a tagged red blood cell scan, that did not show any active bleeding. She then was seen by GI, who performed colonoscopy and EGD. The EGD portion showed a large hiatal hernia, but had very severe diverticulosis coli. There was a large amount of blood in the colon, and due to the presence of diverticula, the bleeding was thought to be diverticular in nature. She did require a unit of packed red blood cells to be transfused during that period of time. Eliquis was stopped and was recommended that Eliquis be stopped for a period of 2 weeks, and the risks and benefits of resuming to be discussed thereafter. The patient was discharged from the hospital in stable condition. At this time, the patient denies any further bleeding episodes. She denies any abdominal pain. She does report back pain; however, it is bearable. PAST MEDICAL HISTORY: 1. History of DVT and PE, on long-term anticoagulation. 2. Hyperlipidemia. 3. Hypertension. 4. History of breast cancer. 5. Depression and anxiety. 6. Diverticulosis with diverticulitis. 7. Iron deficiency anemia. 8. Hypothyroidism. PAST SURGICAL HISTORY: 1. Appendectomy. 2. Cholecystectomy. 3. Renal stent. 4. Hemorrhoidectomy. 5. Hysterectomy. 6. Left mastectomy. 7. Right breast lumpectomy. 8. Left shoulder surgery. 9. Thyroidectomy. 10. Tonsillectomy. 11. Hernia repair. 12. Skin cancer removal. 13. Left ankle surgery. SOCIAL HISTORY: The patient is a former smoker. She denies any current tobacco use. Denies alcohol and drug use as well. The patient lives at home with her daughter and son-in-law. FAMILY HISTORY: Noncontributory. ALLERGIES: 1. AMOXICILLIN. 2. ASPIRIN. 3. CODEINE. 4. NSAIDS. 5. PENICILLIN. 6. AZO. 7. SULFA DRUGS. 8. MILK. 9. ICE CREAM. 10. PAPER TAPE. CURRENT MEDICATIONS: 1. Levothyroxine 137 mcg p.o. q.a.m. 2. Hydrochlorothiazide 12.5 mg p.o. daily. 3. Iron 325 mg p.o. b.i.d. 4. Atorvastatin 20 mg p.o. at bedtime. 5. Cymbalta 30 mg daily. 6. [place] 10/325 q.6 hours p.r.n. 7. Flexeril 10 mg t.i.d. p.r.n. 8. Protonix 40 mg p.o. daily. REVIEW OF SYSTEMS: GENERAL: The patient denies any fevers, chills, or night sweats. HEENT: The patient denies vision changes or eye pain. CARDIOVASCULAR: The patient denies chest pain or palpitations. RESPIRATORY: The patient denies cough, shortness of breath, or wheezing. ABDOMEN: The patient denies any abdominal pain, nausea, vomiting, or diarrhea. Genitourinary: The patient denies dysuria, urinary frequency, or incontinence. MUSCULOSKELETAL: The patient reports low back pain. NEUROLOGIC: The patient denies any numbness, tingling, or confusion. PSYCHIATRIC: The patient denies current symptoms of anxiety and depression. SKIN: The patient denies any rashes or lesions. PHYSICAL EXAMINATION: VITAL SIGNS: Temperature 98.7, pulse 63, respirations 16, oxygen 96% on room air, blood pressure 133/79. GENERAL: The patient is alert and oriented x3, in no apparent distress. HEENT: Normocephalic and atraumatic. Extraocular muscles are intact. Pupils are equal, round, and reactive to light. Moist mucous membranes. CARDIAC: Regular rate and rhythm. No murmurs, rubs, or gallops. Normal S1 and S2. LUNGS: Clear to auscultation bilaterally. No crackles, wheezes, or rales. ABDOMEN: Soft and nontender to palpation. No distention noted. No organomegaly or masses. EXTREMITIES: Normal perfusion. No peripheral edema. NEUROLOGIC: Cranial nerves 2 through 12 intact grossly. SKIN: Intact with no rashes or lesions. PSYCHIATRIC: Appropriate mood and affect. ASSESSMENT AND PLAN: 1. Physical deconditioning. The patient is admitted to [facility] for rehabilitation, and Physical Therapy and Occupational Therapy have been ordered and will evaluate the patient tomorrow. 2. L2 fracture. Continue pain medications as needed. Physical therapy will be resumed as well. 3. Blood loss anemia. Per the recommendations given during last hospitalization, Eliquis has been held, and we will hold for 2 weeks and discuss the risks and benefits of resuming Eliquis after that time. It was recommended that the patient's iron supplementation be stopped as well due to the fact that it can be constipating, which can potentially worsen diverticular bleeding. Continue outpatient followup with Hematology. 4. Hypertension. We will resume the patient's home antihypertensive regimen. The patient's daughter stated that amlodipine was added at the last hospitalization. We will hold off on resuming amlodipine at this time; however, we will monitor blood pressures and initiate it as needed. 5. Depression and anxiety. We will continue Cymbalta. The patient's daughter states that the patient's sertraline was being tapered on an outpatient basis; however, during last hospitalization, the patient did not receive it for a week. The patient denies any current symptoms of serotonin discontinuation. So, at this point, we will not resume sertraline. 6. Dyslipidemia. We will resume statin medication. 7. History of deep venous thrombosis and pulmonary embolism. We will hold Eliquis as described above. 8. Hypothyroidism. We will resume the patient's levothyroxine. 9. Code status, DNR. Discussed with the patient and her daughter at the bedside. 10. Deep venous thrombosis prophylaxis. Sequential compression devices. Job ID: [id number]
[2019-12-19] MEDS: Multivit, Therapeutic 1 TAB PO SCH (08:22)
[2019-12-19] MEDS: Hydrochlorothiazide 25 MG TAB PO SCH (08:22)
[2019-12-19] MEDS: HYDROcodone/Acetaminophen 10/325 mg Tablet PO PRN (11:34)
[2019-12-19] MEDS ORDERED: guaiFENesin ER 600 MG TAB PO PRN (14:47)
[2019-12-19] MEDS ORDERED: THERAWORKS TOP PRN (15:30)
[2019-12-19] MEDS: DULoxetine 30 MG CAP PO SCH (20:38)
[2019-12-19] MEDS: Atorvastatin Calcium 10 MG TAB PO SCH (20:38)
[2019-12-20] MEDS: Levothyroxine Sodium 25 MCG TAB PO SCH (05:04)
[2019-12-20] MEDS: Levothyroxine Sodium 112 MCG TAB PO SCH (05:05)
[2019-12-20] MEDS: Hydrochlorothiazide 25 MG TAB PO SCH (09:08)
[2019-12-20] MEDS: Multivit, Therapeutic 1 TAB PO SCH (09:08)
[2019-12-20] MEDS: HYDROcodone/Acetaminophen 10/325 mg Tablet PO PRN (12:54)
[2019-12-20] MEDS ORDERED: Docusate 100 MG CAP PO PRN (13:11)
[2019-12-20] MEDS: Atorvastatin Calcium 10 MG TAB PO SCH (21:10)
[2019-12-20] MEDS: DULoxetine 30 MG CAP PO SCH (21:11)
[2019-12-20] MEDS: Cyclobenzaprine 10 MG TAB PO PRN (23:44)
[2019-12-21] MEDS: Levothyroxine Sodium 112 MCG TAB PO SCH (05:14)
[2019-12-21] MEDS: Levothyroxine Sodium 25 MCG TAB PO SCH (05:14)
[2019-12-21] MEDS: Hydrochlorothiazide 25 MG TAB PO SCH (08:51)
[2019-12-21] MEDS: Lidocaine 5% Patch TD SCH (08:52)
[2019-12-21] MEDS: Multivit, Therapeutic 1 TAB PO SCH (08:52)
[2019-12-21] MEDS: HYDROcodone/Acetaminophen 10/325 mg Tablet PO PRN (08:52)
[2019-12-21] MEDS: DULoxetine 30 MG CAP PO SCH (20:57)
[2019-12-21] MEDS: Atorvastatin Calcium 10 MG TAB PO SCH (20:58)
[2019-12-21] MEDS: Lidocaine Patch Removal 1 EACH TOP SCH (20:58)
[2019-12-22] MEDS: Levothyroxine Sodium 112 MCG TAB PO SCH (06:21)
[2019-12-22] MEDS: Levothyroxine Sodium 25 MCG TAB PO SCH (06:21)
[2019-12-22] MEDS: Multivit, Therapeutic 1 TAB PO SCH (08:58)
[2019-12-22] MEDS: HYDROcodone/Acetaminophen 10/325 mg Tablet PO PRN ×2 (08:58→14:58)
[2019-12-22] MEDS: Hydrochlorothiazide 25 MG TAB PO SCH (08:58)
[2019-12-22] MEDS: Lidocaine 5% Patch TD SCH (08:58)
[2019-12-22] MEDS: Atorvastatin Calcium 10 MG TAB PO SCH (22:00)
[2019-12-22] MEDS: DULoxetine 30 MG CAP PO SCH (22:00)
[2019-12-22] MEDS: Lidocaine Patch Removal 1 EACH TOP SCH (22:00)
[2019-12-23] MEDS: Levothyroxine Sodium 112 MCG TAB PO SCH (05:28)
[2019-12-23] MEDS: Levothyroxine Sodium 25 MCG TAB PO SCH (05:28)
[2019-12-23] MEDS: Hydrochlorothiazide 25 MG TAB PO SCH (08:13)
[2019-12-23] MEDS: Multivit, Therapeutic 1 TAB PO SCH (08:13)
[2019-12-23] MEDS: Lidocaine 5% Patch TD SCH (08:13)
[2019-12-23] MEDS: HYDROcodone/Acetaminophen 10/325 mg Tablet PO PRN (09:34)
[2019-12-23] MEDS: Atorvastatin Calcium 10 MG TAB PO SCH (21:43)
[2019-12-23] MEDS: Melatonin 3 MG TAB PO PRN (21:44)
[2019-12-23] MEDS: Cyclobenzaprine 10 MG TAB PO PRN (21:44)
[2019-12-23] MEDS: DULoxetine 30 MG CAP PO SCH (21:44)
[2019-12-23] MEDS: Lidocaine Patch Removal 1 EACH TOP SCH (21:58)
[2019-12-24] MEDS: Levothyroxine Sodium 112 MCG TAB PO SCH (05:18)
[2019-12-24] MEDS: Levothyroxine Sodium 25 MCG TAB PO SCH (05:18)
[2019-12-24] MEDS: HYDROcodone/Acetaminophen 10/325 mg Tablet PO PRN (08:45)
[2019-12-24] MEDS: Multivit, Therapeutic 1 TAB PO SCH (08:46)
[2019-12-24] MEDS: Lidocaine 5% Patch TD SCH (08:46)
[2019-12-24] MEDS: Hydrochlorothiazide 25 MG TAB PO SCH (08:47)
[2019-12-24] MEDS: Atorvastatin Calcium 10 MG TAB PO SCH (21:32)
[2019-12-24] MEDS: Cyclobenzaprine 10 MG TAB PO PRN (21:33)
[2019-12-24] MEDS: DULoxetine 30 MG CAP PO SCH (21:33)
[2019-12-24] MEDS: Melatonin 3 MG TAB PO PRN (21:33)
[2019-12-24] MEDS: Lidocaine Patch Removal 1 EACH TOP SCH (21:35)
[2019-12-25] MEDS: Levothyroxine Sodium 25 MCG TAB PO SCH (05:59)
[2019-12-25] MEDS: Levothyroxine Sodium 112 MCG TAB PO SCH (05:59)
[2019-12-25] MEDS: Multivit, Therapeutic 1 TAB PO SCH (08:27)
[2019-12-25] MEDS: Lidocaine 5% Patch TD SCH (08:27)
[2019-12-25] MEDS: Hydrochlorothiazide 25 MG TAB PO SCH (08:27)
[2019-12-25] MEDS: HYDROcodone/Acetaminophen 10/325 mg Tablet PO PRN ×2 (08:50→13:51)
[2019-12-25] MEDS: Melatonin 3 MG TAB PO PRN (20:58)
[2019-12-25] MEDS: Atorvastatin Calcium 10 MG TAB PO SCH (20:58)
[2019-12-25] MEDS: Cyclobenzaprine 10 MG TAB PO PRN (20:58)
[2019-12-25] MEDS: DULoxetine 30 MG CAP PO SCH (20:58)
[2019-12-25] MEDS: Lidocaine Patch Removal 1 EACH TOP SCH (20:59)
[2019-12-26] MEDS: Levothyroxine Sodium 25 MCG TAB PO SCH (05:54)
[2019-12-26] MEDS: Levothyroxine Sodium 112 MCG TAB PO SCH (05:54)
[2019-12-26] MEDS: Hydrochlorothiazide 25 MG TAB PO SCH (09:15)
[2019-12-26] MEDS: Multivit, Therapeutic 1 TAB PO SCH (09:16)
[2019-12-26] MEDS: Lidocaine 5% Patch TD SCH (09:17)
[2019-12-26] MEDS ORDERED: Bisacodyl 10 MG SUPP PR SCH (15:30)
[2019-12-26] MEDS: DULoxetine 30 MG CAP PO SCH (21:22)
[2019-12-26] MEDS: Polyethylene Glycol 3350 17 GM Packet PO SCH (21:22)
[2019-12-26] MEDS: Atorvastatin Calcium 10 MG TAB PO SCH (21:22)
[2019-12-26] MEDS: Lidocaine Patch Removal 1 EACH TOP SCH (21:22)
[2019-12-26] MEDS: HYDROcodone/Acetaminophen 10/325 mg Tablet PO PRN (21:23)
[2019-12-27] MEDS: Levothyroxine Sodium 112 MCG TAB PO SCH (05:44)
[2019-12-27] MEDS: Levothyroxine Sodium 25 MCG TAB PO SCH (05:45)
[2019-12-27] MEDS: Hydrochlorothiazide 25 MG TAB PO SCH (08:30)
[2019-12-27] MEDS: Multivit, Therapeutic 1 TAB PO SCH (08:30)
[2019-12-27] MEDS: Lidocaine 5% Patch TD SCH (09:40)
[2019-12-27] MEDS: HYDROcodone/Acetaminophen 10/325 mg Tablet PO PRN ×2 (10:50→18:22)
[2019-12-27] MEDS: DULoxetine 30 MG CAP PO SCH (21:55)
[2019-12-27] MEDS: Atorvastatin Calcium 10 MG TAB PO SCH (21:55)
[2019-12-27] MEDS: Polyethylene Glycol 3350 17 GM Packet PO SCH (21:56)
[2019-12-27] MEDS: Lidocaine Patch Removal 1 EACH TOP SCH (21:56)
[2019-12-27] MEDS: Melatonin 3 MG TAB PO PRN (21:56)
[2019-12-28] MEDS: Levothyroxine Sodium 112 MCG TAB PO SCH (05:51)
[2019-12-28] MEDS: Levothyroxine Sodium 25 MCG TAB PO SCH (05:51)
[2019-12-28] MEDS: HYDROcodone/Acetaminophen 10/325 mg Tablet PO PRN ×2 (08:40→15:59)
[2019-12-28] MEDS: Lidocaine 5% Patch TD SCH (08:40)
[2019-12-28] MEDS: Multivit, Therapeutic 1 TAB PO SCH (08:42)
[2019-12-28] MEDS: Hydrochlorothiazide 25 MG TAB PO SCH (08:42)
[2019-12-28] MEDS: Cyclobenzaprine 10 MG TAB PO PRN (21:03)
[2019-12-28] MEDS: DULoxetine 30 MG CAP PO SCH (21:03)
[2019-12-28] MEDS: Lidocaine Patch Removal 1 EACH TOP SCH (21:03)
[2019-12-28] MEDS: Polyethylene Glycol 3350 17 GM Packet PO SCH (21:03)
[2019-12-28] MEDS: Atorvastatin Calcium 10 MG TAB PO SCH (21:03)
[2019-12-29] MEDS: Levothyroxine Sodium 25 MCG TAB PO SCH (06:02)
[2019-12-29] MEDS: Levothyroxine Sodium 112 MCG TAB PO SCH (06:02)
[2019-12-29] MEDS: Lidocaine 5% Patch TD SCH (09:27)
[2019-12-29] MEDS: Multivit, Therapeutic 1 TAB PO SCH (09:27)
[2019-12-29] MEDS: Hydrochlorothiazide 25 MG TAB PO SCH (09:27)
[2019-12-29] MEDS: HYDROcodone/Acetaminophen 10/325 mg Tablet PO PRN (15:34)
[2019-12-29] MEDS: Cyclobenzaprine 10 MG TAB PO PRN (15:36)
[2019-12-29] MEDS: Polyethylene Glycol 3350 17 GM Packet PO SCH (20:56)
[2019-12-29] MEDS: DULoxetine 30 MG CAP PO SCH (20:56)
[2019-12-29] MEDS: Lidocaine Patch Removal 1 EACH TOP SCH (20:56)
[2019-12-29] MEDS: Atorvastatin Calcium 10 MG TAB PO SCH (20:56)
[2019-12-30] MEDS: Levothyroxine Sodium 25 MCG TAB PO SCH (06:19)
[2019-12-30] MEDS: Levothyroxine Sodium 112 MCG TAB PO SCH (06:19)
[2019-12-30] MEDS: Multivit, Therapeutic 1 TAB PO SCH (10:09)
[2019-12-30] MEDS: Hydrochlorothiazide 25 MG TAB PO SCH (10:09)
[2019-12-30] MEDS: Lidocaine 5% Patch TD SCH (10:10)
[2019-12-30] MEDS: DULoxetine 30 MG CAP PO SCH (20:51)
[2019-12-30] MEDS: Atorvastatin Calcium 10 MG TAB PO SCH (20:51)
[2019-12-30] MEDS: Polyethylene Glycol 3350 17 GM Packet PO SCH (20:51)
[2019-12-30] MEDS: HYDROcodone/Acetaminophen 10/325 mg Tablet PO PRN (20:51)
[2019-12-30] MEDS: Lidocaine Patch Removal 1 EACH TOP SCH (20:51)
[2019-12-31] MEDS: Levothyroxine Sodium 112 MCG TAB PO SCH (05:56)
[2019-12-31] MEDS: Levothyroxine Sodium 25 MCG TAB PO SCH (05:57)
[2019-12-31] MEDS: HYDROcodone/Acetaminophen 10/325 mg Tablet PO PRN ×2 (05:57→21:43)
[2019-12-31 07:23] LABS: #Eosinphils 0.1 thou/uL (0.0-0.7); #Lymphocytes 0.9 thou/uL (1.20-3.40); #Monocytes 0.5 thou/uL (0.11-0.59); #Neutrophils 2.6 thou/uL (1.40-6.50); %Basophils 0.4 % (0.0-1.0); %Eosinophils 2.9 % (0.0-10.0); %Monocytes 11.1 % (0.0-10.0); %Neutrophils 63.6 % (42.0-75.0); Mean Corpuscular HGB CONC 29.4 g/dL (32.0-36.0); Mean Corpuscular Hemoglobin 26.3 pg (27.0-31.0); Mean Corpuscular Volume 89.5 fL (78.0-98.0); Mean Platelet Volume 8.2 fL (7.4-10.4); Platelet Count 138 thou/uL (130-400); RBC Distribution Width 16.9 % (11.5-14.5); Red Blood Cell (RBC) Count 3.05 mill/uL (4.20-5.40); White Blood Cell (WBC) Count 4.1 thou/uL (4.8-10.8)
[2019-12-31] MEDS: Hydrochlorothiazide 25 MG TAB PO SCH (08:09)
[2019-12-31] MEDS: Multivit, Therapeutic 1 TAB PO SCH (08:09)
[2019-12-31] MEDS: Lidocaine 5% Patch TD SCH (08:09)
[2019-12-31] MEDS: Polyethylene Glycol 3350 17 GM Packet PO SCH (21:37)
[2019-12-31] MEDS: DULoxetine 30 MG CAP PO SCH (21:37)
[2019-12-31] MEDS: Atorvastatin Calcium 10 MG TAB PO SCH (21:37)
[2019-12-31] MEDS: Lidocaine Patch Removal 1 EACH TOP SCH (21:38)
[2020-01-01] MEDS: Levothyroxine Sodium 25 MCG TAB PO SCH (05:52)
[2020-01-01] MEDS: Levothyroxine Sodium 112 MCG TAB PO SCH (05:52)
[2020-01-01] MEDS: Lidocaine 5% Patch TD SCH (08:07)
[2020-01-01] MEDS: Hydrochlorothiazide 25 MG TAB PO SCH (08:07)
[2020-01-01] MEDS: Multivit, Therapeutic 1 TAB PO SCH (08:07)
[2020-01-01] MEDS: Polyethylene Glycol 3350 17 GM Packet PO SCH (20:08)
[2020-01-01] MEDS: Lidocaine Patch Removal 1 EACH TOP SCH (20:08)
[2020-01-01] MEDS: DULoxetine 30 MG CAP PO SCH (20:08)
[2020-01-01] MEDS: Atorvastatin Calcium 10 MG TAB PO SCH (20:08)
[2020-01-01] MEDS: HYDROcodone/Acetaminophen 10/325 mg Tablet PO PRN (20:15)
[2020-01-01] MEDS: Melatonin 3 MG TAB PO PRN (20:15)
[2020-01-01] MEDS: Cyclobenzaprine 10 MG TAB PO PRN (20:15)
[2020-01-02] MEDS: Levothyroxine Sodium 112 MCG TAB PO SCH (05:17)
[2020-01-02] MEDS: Levothyroxine Sodium 25 MCG TAB PO SCH (05:17)
[2020-01-02] MEDS: Lidocaine 5% Patch TD SCH (08:23)
[2020-01-02] MEDS: Multivit, Therapeutic 1 TAB PO SCH (08:24)
[2020-01-02] MEDS: Hydrochlorothiazide 25 MG TAB PO SCH (08:24)
[2020-01-02] MEDS: HYDROcodone/Acetaminophen 10/325 mg Tablet PO PRN (15:53)
[2020-01-02] MEDS: Atorvastatin Calcium 10 MG TAB PO SCH (20:50)
[2020-01-02] MEDS: DULoxetine 30 MG CAP PO SCH (20:51)
[2020-01-02] MEDS: Polyethylene Glycol 3350 17 GM Packet PO SCH (20:51)
[2020-01-02] MEDS: Lidocaine Patch Removal 1 EACH TOP SCH (20:51)
[2020-01-02] MEDS: Cyclobenzaprine 10 MG TAB PO PRN (20:51)
[2020-01-02] MEDS: Melatonin 3 MG TAB PO PRN (20:51)
[2020-01-03] MEDS: Levothyroxine Sodium 25 MCG TAB PO SCH (05:25)
[2020-01-03] MEDS: Levothyroxine Sodium 112 MCG TAB PO SCH (05:25)
[2020-01-03] MEDS: Hydrochlorothiazide 25 MG TAB PO SCH (08:48)
[2020-01-03] MEDS: Lidocaine 5% Patch TD SCH (08:48)
[2020-01-03] MEDS: Multivit, Therapeutic 1 TAB PO SCH (08:48)
[2020-01-03 09:52] VITALS: BMI 40.1
[2020-01-03] MEDS: HYDROcodone/Acetaminophen 10/325 mg Tablet PO PRN ×2 (10:38→16:45)
[2020-01-03] MEDS: Atorvastatin Calcium 10 MG TAB PO SCH (21:06)
[2020-01-03] MEDS: Polyethylene Glycol 3350 17 GM Packet PO SCH ×2 (21:06→21:07)
[2020-01-03] MEDS: DULoxetine 30 MG CAP PO SCH (21:06)
[2020-01-03] MEDS: Lidocaine Patch Removal 1 EACH TOP SCH (21:07)
[2020-01-03] MEDS: Cyclobenzaprine 10 MG TAB PO PRN (21:14)
[2020-01-04] MEDS: Melatonin 3 MG TAB PO PRN (01:43)
[2020-01-04] MEDS: HYDROcodone/Acetaminophen 10/325 mg Tablet PO PRN ×2 (01:43→09:58)
[2020-01-04] MEDS: Levothyroxine Sodium 112 MCG TAB PO SCH (05:50)
[2020-01-04] MEDS: Levothyroxine Sodium 25 MCG TAB PO SCH (05:50)
[2020-01-04] MEDS ORDERED: Iron, Sodium Ferric Gluconate 125 MG in Sodium Chloride 0.9% 100 ML IVPB SCH (09:30)
[2020-01-04] MEDS: Multivit, Therapeutic 1 TAB PO SCH (09:55)
[2020-01-04] MEDS: Lidocaine 5% Patch TD SCH (09:55)
[2020-01-04] MEDS: Hydrochlorothiazide 25 MG TAB PO SCH (09:55)
[2020-01-04] MEDS: Cyclobenzaprine 10 MG TAB PO PRN ×2 (09:58→20:18)
[2020-01-04 10:09] LABS: #Basophils 0.1 thou/uL (0.0-0.2); #Eosinphils 0.1 thou/uL (0.0-0.7); #Monocytes 0.6 thou/uL (0.11-0.59); #Neutrophils 4.1 thou/uL (1.40-6.50); %Basophils 0.9 % (0.0-1.0); %Eosinophils 2.1 % (0.0-10.0); %Lymphocytes 17.5 % (21.0-51.0); %Monocytes 10.1 % (0.0-10.0); %Neutrophils 69.5 % (42.0-75.0); Hemoglobin 9.2 g/dL (12.0-16.0); Mean Corpuscular HGB CONC 29.2 g/dL (32.0-36.0); Mean Corpuscular Hemoglobin 26.1 pg (27.0-31.0); Mean Corpuscular Volume 89.3 fL (78.0-98.0); Mean Platelet Volume 7.8 fL (7.4-10.4); Platelet Count 236 thou/uL (130-400); Red Blood Cell (RBC) Count 3.52 mill/uL (4.20-5.40); White Blood Cell (WBC) Count 5.9 thou/uL (4.8-10.8)
[2020-01-04] MEDS: DULoxetine 30 MG CAP PO SCH (20:18)
[2020-01-04] MEDS: Polyethylene Glycol 3350 17 GM Packet PO SCH (20:18)
[2020-01-04] MEDS: Lidocaine Patch Removal 1 EACH TOP SCH (20:19)
[2020-01-04] MEDS: Atorvastatin Calcium 10 MG TAB PO SCH (20:19)
[2020-01-05] MEDS: Levothyroxine Sodium 25 MCG TAB PO SCH (05:12)
[2020-01-05] MEDS: Levothyroxine Sodium 112 MCG TAB PO SCH (05:12)
[2020-01-05] MEDS: Hydrochlorothiazide 25 MG TAB PO SCH (08:41)
[2020-01-05] MEDS: Multivit, Therapeutic 1 TAB PO SCH (08:41)
[2020-01-05] MEDS: Lidocaine 5% Patch TD SCH (08:41)
[2020-01-05] MEDS: Amlodipine 5 MG TAB PO SCH (08:41)
[2020-01-05] MEDS: Cyclobenzaprine 10 MG TAB PO PRN (08:41)
[2020-01-05] MEDS: HYDROcodone/Acetaminophen 10/325 mg Tablet PO PRN (18:15)
[2020-01-05] MEDS: Atorvastatin Calcium 10 MG TAB PO SCH (21:44)
[2020-01-05] MEDS: DULoxetine 30 MG CAP PO SCH (21:44)
[2020-01-05] MEDS: Polyethylene Glycol 3350 17 GM Packet PO SCH (21:44)
[2020-01-05] MEDS: Lidocaine Patch Removal 1 EACH TOP SCH (21:45)
[2020-01-06] MEDS: Levothyroxine Sodium 25 MCG TAB PO SCH (06:13)
[2020-01-06] MEDS: Levothyroxine Sodium 112 MCG TAB PO SCH (06:13)
[2020-01-06] MEDS: Amlodipine 5 MG TAB PO SCH (08:36)
[2020-01-06] MEDS: Hydrochlorothiazide 25 MG TAB PO SCH (08:37)
[2020-01-06] MEDS: Multivit, Therapeutic 1 TAB PO SCH (08:37)
[2020-01-06] MEDS: Lidocaine 5% Patch TD SCH (08:37)
[2020-01-06] MEDS: Cyclobenzaprine 10 MG TAB PO PRN ×2 (14:42→20:45)
[2020-01-06] MEDS: Atorvastatin Calcium 10 MG TAB PO SCH (20:44)
[2020-01-06] MEDS: Lidocaine Patch Removal 1 EACH TOP SCH (20:44)
[2020-01-06] MEDS: DULoxetine 30 MG CAP PO SCH (20:44)
[2020-01-06] MEDS: Polyethylene Glycol 3350 17 GM Packet PO SCH (20:45)
[2020-01-07] MEDS: Melatonin 3 MG TAB PO PRN ×2 (00:48→21:15)
[2020-01-07] MEDS: Levothyroxine Sodium 112 MCG TAB PO SCH (05:37)
[2020-01-07] MEDS: Levothyroxine Sodium 25 MCG TAB PO SCH (05:37)
[2020-01-07] MEDS: HYDROcodone/Acetaminophen 10/325 mg Tablet PO PRN ×2 (08:19→21:14)
[2020-01-07] MEDS: Hydrochlorothiazide 25 MG TAB PO SCH (08:20)
[2020-01-07] MEDS: Multivit, Therapeutic 1 TAB PO SCH (08:20)
[2020-01-07] MEDS: Amlodipine 5 MG TAB PO SCH (08:20)
[2020-01-07] MEDS: Lidocaine 5% Patch TD SCH (08:20)
[2020-01-07] MEDS: Atorvastatin Calcium 10 MG TAB PO SCH (21:09)
[2020-01-07] MEDS: Lidocaine Patch Removal 1 EACH TOP SCH (21:10)
[2020-01-07] MEDS: DULoxetine 30 MG CAP PO SCH (21:10)
[2020-01-07] MEDS: Polyethylene Glycol 3350 17 GM Packet PO SCH (21:11)
[2020-01-08] MEDS: Levothyroxine Sodium 25 MCG TAB PO SCH (05:24)
[2020-01-08] MEDS: Levothyroxine Sodium 112 MCG TAB PO SCH (05:25)
[2020-01-08] MEDS: Amlodipine 5 MG TAB PO SCH (08:42)
[2020-01-08] MEDS: Hydrochlorothiazide 25 MG TAB PO SCH (08:42)
[2020-01-08] MEDS: Lidocaine 5% Patch TD SCH (08:42)
[2020-01-08] MEDS: Multivit, Therapeutic 1 TAB PO SCH (08:42)
[2020-01-08] MEDS: HYDROcodone/Acetaminophen 10/325 mg Tablet PO PRN ×2 (10:24→21:39)
[2020-01-08] MEDS ORDERED: Budesonide 0.5 MG/2 ML NEB INH SCH (19:00)
[2020-01-08] MEDS: Atorvastatin Calcium 10 MG TAB PO SCH (21:39)
[2020-01-08] MEDS: DULoxetine 30 MG CAP PO SCH (21:39)
[2020-01-08] MEDS: Melatonin 3 MG TAB PO PRN (21:39)
[2020-01-08] MEDS: Lidocaine Patch Removal 1 EACH TOP SCH (21:41)
[2020-01-08] MEDS: Polyethylene Glycol 3350 17 GM Packet PO SCH (21:41)
[2020-01-09] MEDS: Levothyroxine Sodium 112 MCG TAB PO SCH (05:59)
[2020-01-09] MEDS: Levothyroxine Sodium 25 MCG TAB PO SCH (05:59)
[2020-01-09] MEDS: Multivit, Therapeutic 1 TAB PO SCH (08:25)
[2020-01-09] MEDS: Amlodipine 5 MG TAB PO SCH (08:25)
[2020-01-09] MEDS: Lidocaine 5% Patch TD SCH (08:25)
[2020-01-09] MEDS: Hydrochlorothiazide 25 MG TAB PO SCH (08:25)
[2020-01-09] MEDS: Cyclobenzaprine 10 MG TAB PO PRN ×2 (08:28→20:31)
[2020-01-09] MEDS: HYDROcodone/Acetaminophen 10/325 mg Tablet PO PRN (11:43)
[2020-01-09] MEDS: Atorvastatin Calcium 10 MG TAB PO SCH (20:30)
[2020-01-09] MEDS: DULoxetine 30 MG CAP PO SCH (20:30)
[2020-01-09] MEDS: Melatonin 3 MG TAB PO PRN (20:30)
[2020-01-09] MEDS: Lidocaine Patch Removal 1 EACH TOP SCH (20:31)
[2020-01-09] MEDS: Polyethylene Glycol 3350 17 GM Packet PO SCH (20:31)
[2020-01-10] MEDS: Levothyroxine Sodium 25 MCG TAB PO SCH (05:29)
[2020-01-10] MEDS: Levothyroxine Sodium 112 MCG TAB PO SCH (05:29)
[2020-01-10] MEDS: HYDROcodone/Acetaminophen 10/325 mg Tablet PO PRN (05:33)
[2020-01-10] MEDS: Multivit, Therapeutic 1 TAB PO SCH (08:08)
[2020-01-10] MEDS: Lidocaine 5% Patch TD SCH (08:08)
[2020-01-10] MEDS: Amlodipine 5 MG TAB PO SCH (08:08)
[2020-01-10] MEDS: Hydrochlorothiazide 25 MG TAB PO SCH (08:08)
[2020-01-10] MEDS: Cyclobenzaprine 10 MG TAB PO PRN (20:27)
[2020-01-10] MEDS: Melatonin 3 MG TAB PO PRN (20:27)
[2020-01-10] MEDS: DULoxetine 30 MG CAP PO SCH (20:27)
[2020-01-10] MEDS: Lidocaine Patch Removal 1 EACH TOP SCH (20:27)
[2020-01-10] MEDS: Atorvastatin Calcium 10 MG TAB PO SCH (20:27)
[2020-01-10] MEDS: Polyethylene Glycol 3350 17 GM Packet PO SCH (20:28)
[2020-01-11] MEDS: Levothyroxine Sodium 112 MCG TAB PO SCH (05:24)
[2020-01-11] MEDS: Levothyroxine Sodium 25 MCG TAB PO SCH (05:24)
[2020-01-11 08:22] VITALS: BP 158/64; TEMP 97.8
[2020-01-11] MEDS: Hydrochlorothiazide 25 MG TAB PO SCH (08:39)
[2020-01-11] MEDS: Multivit, Therapeutic 1 TAB PO SCH (08:39)
[2020-01-11] MEDS: Amlodipine 5 MG TAB PO SCH (08:39)
[2020-01-11] MEDS: Lidocaine 5% Patch TD SCH (08:39)
--- NOTE | 2020-01-11 19:38 | DIS ---
DATE OF ADMISSION: 12/17/2019 DATE OF DISCHARGE: 01/11/2020 REASON FOR ADMISSION: Skilled rehab in [place] after recent hospitalization. CONDITION ON DISCHARGE: Stable. DISPOSITION: Home with daughter. FINAL DIAGNOSES: 1. Physical deconditioning. 2. L2 compression fracture, closed. 3. Acute on chronic anemia, secondary to diverticular bleed, requiring blood transfusions. 4. Iron deficiency anemia, chronic, requiring monthly iron infusion by her director surface transportation. 5. Hypertension, controlled. 6. Depression and anxiety. 7. Dyslipidemia. 8. 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 9. Hypothyroidism. MEDICATIONS: 1. Amlodipine 5 mg p.o. daily. 2. Cyclobenzaprine 10 mg p.o. t.i.d. p.r.n. 3. Docusate 100 mg p.o. b.i.d. p.r.n. 4. Duloxetine 30 mg p.o. at bedtime. 5. Hydrochlorothiazide 12.5 mg p.o. daily. 6. Lidocaine patch 5% q.12. 7. Polyethylene glycol 17 g daily. 8. Melatonin 3 mg p.o. at bedtime. 9. Pantoprazole 40 mg p.o. daily. DISCHARGE INSTRUCTIONS: DIET: Low salt, low fat. ACTIVITY: To use rolling walker at all times. Fall precautions. FOLLOW UP: 1. Follow up with Dr. Ny in 2 weeks. 2. Follow up with Dr. Delgado as previously scheduled for Gastroenterology care. 3. Follow up with Hematology in 1 month for iron infusion. 4. Follow up with Dr. Al/neurosurgeon for further evaluation of back pain per family's request. Family to call the neurosurgeon's clinic as appointment is on hold at this time. 5. Refer to [facility] per request for PT, OT eval and treat. 6. Refer to Dr. Pinedo for Cardiology care. This will be scheduled by the family. I will refer to Dr. Pinedo to discuss the need for using the Eliquis. This will be scheduled by the family. HISTORY OF THE PRESENT ILLNESS AND HOSPITAL COURSE: Ms. Moreno is a very pleasant 79-year-old female with multiple chronic medical conditions including hypertension, hypothyroidism, depression, anxiety, recurrent DVTs, history of pulmonary embolism, and chronic anemia, requiring iron transfusion every month by her network technician. The patient has been on anticoagulant with Eliquis as initiated by her gender studies professor. The patient was recently admitted at [facility] for intractable low back pain on 12/03/2019. She was on her rehab when she had an acute onset of bright rectal bleeding. The patient was subsequently transferred to [facility] in [place] for further GI evaluation on 12/08/2019. The patient underwent an extensive GI workup including colonoscopy at that time. The patient was found to have diverticular bleeding. The patient requires to have a blood transfusion secondary to symptomatic anemia. At that time, her hemoglobin went down to the 6 range. Post transfusion, the patient reports significant improvement of symptoms. She has been symptom free for GI bleeding, but was severely deconditioned, thus she was transferred back to [facility] on 12/17/2019 to continue her rehab. While in rehab, the patient's back pain has markedly improved. She does well with lidocaine patch alone with p.r.n. use of muscle relaxants and rarely narcotic. Family still wanting to have further evaluation in her back. She was then referred to Dr. Al per family's request for further treatment of compression L2 fracture. Awaiting appointment at this time. The patient remained symptom free as far as her GI issues. She received another dose of iron supplement prior to discharge for her monthly iron transfusions in coordination with director surface transportation as represented by ROMEO Shafer. The patient did well with rehab and was very adamant to go home. Prior to discharge, she was walking 50 feet using rolling walker. She remained to have slow arcadio, endurance. Her overall rehab potential was deemed limited by pain in her lower back during exercises. Per therapy, the patient had reached her max potential and almost at her baseline. She was then discharged on 01/11/2020 with recommendations to continue rehab with home health at home. LABORATORY DATA: On 12/28/2019, hemoglobin of 8, hematocrit 27.3, and platelets 138. On 01/04/2020, hemoglobin 9.2, hematocrit 31.5, and platelets 236. Ferritin on 01/03, 46.49. PHYSICAL EXAMINATION: VITAL SIGNS: Prior to discharge; blood pressure 158/64, temperature 97.8, O2 sat is 95% on room air, and respirations 18. Weight 241 pounds and 8 ounces. Height 5 feet 5 inches. GENERAL: The patient was examined prior to discharge. She was oriented x3, comfortable on exam, able to transfer from sitting to standing position using her rolling walker. She walks with wide based gait and slow arcadio, but able to walk on her own. LUNGS: Clear. HEART: At sinus rhythm. EXTREMITIES: She has no leg edema. No cyanosis and no focal signs. Time spent on this discharge, 32 minutes in examining the patient and coordinating care. Job ID: [id number]
== END 2020-01-11 14:30 | disposition home or self-care (01) | DRG 948 ==
LOC: MADMS 16:10
PROVIDERS: ADMIT Family Medicine; ATTEND Family Medicine
DX: R53.81 Other malaise (principal); M48.56XA Collapsed vertebra, not elsewhere classified, lumbar region, initial encounter for fracture; I10 Essential (primary) hypertension; E03.9 Hypothyroidism, unspecified; F32.9 Major depressive disorder, single episode, unspecified; F41.9 Anxiety disorder, unspecified; E78.5 Hyperlipidemia, unspecified; D50.0 Iron deficiency anemia secondary to blood loss (chronic); Z86.718 Personal history of other venous thrombosis and embolism; Z86.711 Personal history of pulmonary embolism; Z79.01 Long term (current) use of anticoagulants; Z85.3 Personal history of malignant neoplasm of breast; Z90.49 Acquired absence of other specified parts of digestive tract; Z90.710 Acquired absence of both cervix and uterus; Z90.89 Acquired absence of other organs; Z90.12 Acquired absence of left breast and nipple; Z85.828 Personal history of other malignant neoplasm of skin; Z88.0 Allergy status to penicillin; Z88.1 Allergy status to other antibiotic agents; Z88.2 Allergy status to sulfonamides; Z88.5 Allergy status to narcotic agent; Z88.8 Allergy status to other drugs, medicaments and biological substances; Z91.011 Allergy to milk products; Z66 Do not resuscitate
CPT/HCPCS: 36415; 82728; 85025; 90471; 90670; G0009; J2916; J3490; Q0162

== ENCOUNTER → 2020-03-06 | Day surgery (SDC) | payer MEDICARE ==
[~2020-03-06] MED LIST: Sodium Chloride 0.9% 100 ML BAG ONE; Sodium Ferric Gluconate 62.5 MG/5 ML AMP ONE
== END ==
LOC: MADER/OP 13:21
PROVIDERS: ATTEND Family Medicine
DX: D50.9 Iron deficiency anemia, unspecified (principal); Z88.0 Allergy status to penicillin; Z88.1 Allergy status to other antibiotic agents; Z88.2 Allergy status to sulfonamides; Z88.6 Allergy status to analgesic agent; Z91.011 Allergy to milk products; Z91.018 Allergy to other foods; Z91.048 Other nonmedicinal substance allergy status
CPT/HCPCS: J2916; J3490

== ENCOUNTER 2020-04-16 14:54 | Outpatient (CLI) | payer MEDICARE ==
[2020-04-16 15:45] LABS: Hemoglobin 12.4 g/dL (12.0-16.0); Mean Corpuscular Hemoglobin 23.9 pg (27.0-31.0); Mean Corpuscular Volume 80.6 fL (78.0-98.0); Red Blood Cell (RBC) Count 5.19 mill/uL (4.20-5.40); White Blood Cell (WBC) Count 8.7 thou/uL (4.8-10.8)
[2020-04-16 15:47] LABS: %Eosinophils 0.6 % (0.0-10.0); %Lymphocytes 22.8 % (21.0-51.0); %Monocytes 9.1 % (0.0-10.0); %Neutrophils 66.7 % (42.0-75.0); Mean Corpuscular HGB CONC 29.6 g/dL (32.0-36.0); Mean Platelet Volume 8.6 fL (7.4-10.4); Platelet Count 226 thou/uL (130-400); RBC Distribution Width 21.4 % (11.5-14.5)
[2020-04-16 15:48] LABS: #Basophils 0.1 thou/uL (0.0-0.2); #Eosinphils 0.1 thou/uL (0.0-0.7); #Monocytes 0.8 thou/uL (0.11-0.59); #Neutrophils 5.8 thou/uL (1.40-6.50); %Basophils 0.8 % (0.0-1.0)
== END 2020-04-16 14:55 | disposition home or self-care (01) ==
LOC: MADLABSP 14:54
PROVIDERS: ATTEND Family Medicine
DX: K57.93 Diverticulitis of intestine, part unspecified, without perforation or abscess with bleeding (principal); I10 Essential (primary) hypertension
CPT/HCPCS: 85025

== ENCOUNTER 2020-04-17 11:43 | Outpatient (CLI) | payer MEDICARE | END 2020-04-17 11:44 | disposition home or self-care (01) | LOC: MADLABSP 11:43 | PROVIDERS: ATTEND Family Medicine | DX: I10 Essential (primary) hypertension (principal); D50.0 Iron deficiency anemia secondary to blood loss (chronic) | CPT/HCPCS: 82728 ==

== ENCOUNTER 2020-04-28 12:16 | Emergency (ER) | payer MEDICARE ==
[2020-04-28] MEDS ORDERED: Sodium Chloride 0.9% 100 ML ONE (13:07)
[2020-04-28] MEDS ORDERED: Diltiazem 125 MG/25 ML ONE (13:07)
--- NOTE | 2020-04-28 13:11 | RAD ---
PORTABLE CHEST 1 VIEW: Date: 04/28/2020 Time: 1302 hours HISTORY: New onset atrial fibrillation. COMPARISON: 11/28/2019. FINDINGS: The heart is enlarged. The aorta is tortuous. The lungs are well expanded without focal areas of cons olidation, pneumothoraces, cr pulmonary edema, or pleural effusions. The hiatal hernia is better v isualized on the previous study. Postop changes of metallic hardware are noted in the left humerus. IMPRESSION: No acute process. POS: SILVIO
[2020-04-28 13:20] LABS: #Basophils 0.1 thou/uL (0.0-0.2); #Lymphocytes 1.9 thou/uL (1.20-3.40); #Neutrophils 7.5 thou/uL (1.40-6.50); %Basophils 0.4 % (0.0-1.0); %Eosinophils 0.3 % (0.0-10.0); %Lymphocytes 18.3 % (21.0-51.0); %Monocytes 9.9 % (0.0-10.0); Hemoglobin 13.4 g/dL (12.0-16.0); Mean Corpuscular HGB CONC 29.4 g/dL (32.0-36.0); Mean Corpuscular Hemoglobin 24.2 pg (27.0-31.0); Mean Corpuscular Volume 82.3 fL (78.0-98.0); Mean Platelet Volume 8.6 fL (7.4-10.4); Platelet Count 302 thou/uL (130-400); RBC Distribution Width 20.5 % (11.5-14.5); Red Blood Cell (RBC) Count 5.55 mill/uL (4.20-5.40); White Blood Cell (WBC) Count 10.6 thou/uL (4.8-10.8)
[2020-04-28 13:26] LABS: Bilirubin Small (Negative); Blood, Urine Negative (Negative); Clarity Clear (Clear); Glucose, Urine (Dipstick) Negative (Negative); Ketone, Urine Trace mg/dL (Negative); Leukocyte Trace (Negative); Nitrite Positive (Negative); Protein, Urine (Dipstick) Trace mg/dL (Neg-Trace); Urobilinogen 0.2 mg/dL (Less than 2)
[2020-04-28 13:27] LABS: Specific Gravity, Urine 1.032 (1.002-1.036)
[2020-04-28 13:31] LABS: Anisocytosis SLIGHT = 6-15 cells (100X) (0-5/hpf); Platelet Morphology Comment Appears Adequate; Poikilocytosis SLIGHT = 6-15 cells (100X) (0-5/hpf)
[2020-04-28 13:32] LABS: ALT (SGPT) 19 U/L (8-55); AST (SGOT) 21 U/L (5-34); Albumin 4.2 g/dL (3.4-4.8); Alkaline Phosphatase 57 U/L (40-110); Anion Gap 17 mmol/L (10-20); BUN (Urea Nitrogen) 25 mg/dL (9.8-20.1); Bilirubin, Total 0.4 mg/dL (0.2-1.2); Calc. Creatinine Clearance 0 mL/min (70-130); Calcium 10.7 mg/dL (7.8-10.44); Carbon Dioxide 23 mmol/L (23-31); Chloride 106 mmol/L (98-107); Estimated GFR-MDRD 49; Glucose 89 mg/dL (83-110); Potassium 4.2 mmol/L (3.5-5.1); Protein, Total 7.2 g/dL (6.0-8.3); Sodium 142 mmol/L (136-145)
[2020-04-28 13:35] LABS: Bacteria/HPF 2+ HPF (None Seen); RBC/HPF 0-3 HPF (0-3); Squamous Epithelial 0-3 HPF (0-3)
[2020-04-28 13:51] LABS: CKMB 3.7 ng/mL (0-6.6)
[2020-04-28] MEDS ORDERED: Ciprofloxacin 500 MG TAB ONE (14:39)
[2020-04-28] MEDS ORDERED: Meclizine HCl 25 MG TAB ONE (16:47)
== END 2020-04-28 17:00 | disposition short-term general hospital (02) ==
LOC: MADERS 12:16
DX: I48.91 Unspecified atrial fibrillation (principal); N30.00 Acute cystitis without hematuria; R79.89 Other specified abnormal findings of blood chemistry; F41.9 Anxiety disorder, unspecified; F32.9 Major depressive disorder, single episode, unspecified; E03.9 Hypothyroidism, unspecified; E78.5 Hyperlipidemia, unspecified; I10 Essential (primary) hypertension; E78.00 Pure hypercholesterolemia, unspecified; E05.90 Thyrotoxicosis, unspecified without thyrotoxic crisis or storm; D64.9 Anemia, unspecified; Z87.442 Personal history of urinary calculi; Z85.3 Personal history of malignant neoplasm of breast; Z87.891 Personal history of nicotine dependence; Z86.711 Personal history of pulmonary embolism; Z86.718 Personal history of other venous thrombosis and embolism; Z79.899 Other long term (current) drug therapy; Z79.01 Long term (current) use of anticoagulants
CPT/HCPCS: 71045; 80053; 81003; 81015; 82553; 84484; 85025; 87077; 87086; 87186; 93005; 96365; 96366; 96376; J3490

== ENCOUNTER 2020-05-10 20:16 | Emergency (ER) | payer MEDICARE ==
--- NOTE | 2020-05-10 20:52 | CT ---
EXAM: CT brain without contrast HISTORY: Confusion after fall COMPARISON: None TECHNIQUE: Multiple contiguous axial images were obtained and a CT of the brain without contrast. Sag ittal and coronal reformats were performed. FINDINGS: There are scattered hypodensities in the subcortical and periventricular white matter consi stent with small vessel ischemic disease. Diffuse cerebral atrophy is seen. There is no evidence of hydrocephalus, intracranial hemorrhage, or extra-axial fluid collection. There is a mass along the left parietal scalp. The calvarium is unremarkable. The visualized paranasa l sinuses and mastoid air cells are well aerated. IMPRESSION: No evidence of acute intracranial abnormality
[2020-05-10 20:59] LABS: ALT (SGPT) 22 U/L (8-55); AST (SGOT) 21 U/L (5-34); Albumin 4.1 g/dL (3.4-4.8); Alkaline Phosphatase 53 U/L (40-110); Anion Gap 14 mmol/L (10-20); BUN (Urea Nitrogen) 29 mg/dL (9.8-20.1); Bilirubin, Total 0.3 mg/dL (0.2-1.2); CK (CPK) 35 U/L (29-168); Calc. Creatinine Clearance 0 mL/min (70-130); Calcium 9.2 mg/dL (7.8-10.44); Carbon Dioxide 23 mmol/L (23-31); Chloride 107 mmol/L (98-107); Estimated GFR-MDRD 55; Globulin 2.6 g/dL (2.4-3.5); Glucose 105 mg/dL (83-110); Potassium 4.4 mmol/L (3.5-5.1); Protein, Total 6.7 g/dL (6.0-8.3); Sodium 140 mmol/L (136-145)
--- NOTE | 2020-05-10 21:02 | RAD ---
Exam: Single view of the pelvis HISTORY: Pelvic and hip pain after fall COMPARISON: None FINDINGS: A single view the pelvis shows no evidence of acute fracture or dislocation. No degenerativ e changes seen in either hip. IMPRESSION: No evidence of acute osseous abnormality.
--- NOTE | 2020-05-10 21:05 | RAD ---
EXAM: 2 views of the left hip HISTORY: Left hip pain after fall COMPARISON: None FINDINGS: 2 views of the left hip shows no evidence of acute fracture or dislocation. No degenerative changes are seen. No soft tissue swelling is present. IMPRESSION: No evidence of acute osseous abnormality.
[2020-05-10 21:09] LABS: #Basophils 0.1 thou/uL (0.0-0.2); #Eosinphils 0.1 thou/uL (0.0-0.7); #Lymphocytes 1.4 thou/uL (1.20-3.40); #Monocytes 0.8 thou/uL (0.11-0.59); #Neutrophils 6.3 thou/uL (1.40-6.50); %Basophils 0.7 % (0.0-1.0); %Eosinophils 0.6 % (0.0-10.0); %Lymphocytes 16.4 % (21.0-51.0); %Monocytes 8.7 % (0.0-10.0); %Neutrophils 73.5 % (42.0-75.0); Anisocytosis MODERATE=16-30 cells (100X) (0-5/hpf); Hemoglobin 12.9 g/dL (12.0-16.0); MDiff Complete? YES; Mean Corpuscular HGB CONC 30.7 g/dL (32.0-36.0); Mean Corpuscular Hemoglobin 25.3 pg (27.0-31.0); Mean Corpuscular Volume 82.4 fL (78.0-98.0); Mean Platelet Volume 9.5 fL (7.4-10.4); Platelet Count 229 thou/uL (130-400); RBC Distribution Width 19.9 % (11.5-14.5); Red Blood Cell (RBC) Count 5.11 mill/uL (4.20-5.40); White Blood Cell (WBC) Count 8.6 thou/uL (4.8-10.8)
--- NOTE | 2020-05-10 21:13 | RAD ---
EXAM: Single view of the chest HISTORY: Confusion after fall COMPARISON: 04/28/2020 FINDINGS: Single view of the chest shows a normal sized cardiomediastinal silhouette. There is no vicky dence of consolidation, mass, or pleural effusion. Hardware is seen in the left humerus. IMPRESSION: No evidence of acute cardiopulmonary disease
== END 2020-05-10 21:30 | disposition home or self-care (01) ==
LOC: MADERS 20:16
DX: S09.90XA Unspecified injury of head, initial encounter (principal); S51.811A Laceration without foreign body of right forearm, initial encounter; S70.02XA Contusion of left hip, initial encounter; E03.9 Hypothyroidism, unspecified; E78.5 Hyperlipidemia, unspecified; I10 Essential (primary) hypertension; E78.00 Pure hypercholesterolemia, unspecified; F32.9 Major depressive disorder, single episode, unspecified; F41.9 Anxiety disorder, unspecified; D64.9 Anemia, unspecified; E05.90 Thyrotoxicosis, unspecified without thyrotoxic crisis or storm; Z86.711 Personal history of pulmonary embolism; Z86.718 Personal history of other venous thrombosis and embolism; Z85.3 Personal history of malignant neoplasm of breast; Z87.442 Personal history of urinary calculi; Z87.891 Personal history of nicotine dependence; W17.89XA Other fall from one level to another, initial encounter
CPT/HCPCS: 36415; 70450; 71045; 72170; 80053; 82550; 84484; 85025; 93005

== ENCOUNTER 2020-08-06 14:22 | Outpatient (CLI) | payer MEDICARE ==
[2020-08-06 15:08] LABS: #Eosinphils 0.1 thou/uL (0.0-0.7); #Lymphocytes 1.5 thou/uL (1.20-3.40); #Monocytes 0.6 thou/uL (0.11-0.59); #Neutrophils 4.1 thou/uL (1.40-6.50); %Basophils 0.5 % (0.0-1.0); %Eosinophils 1.1 % (0.0-10.0); %Monocytes 9.9 % (0.0-10.0); %Neutrophils 64.5 % (42.0-75.0); Hemoglobin 13.2 g/dL (12.0-16.0); Mean Corpuscular HGB CONC 30.9 g/dL (32.0-36.0); Mean Corpuscular Hemoglobin 28.3 pg (27.0-31.0); Mean Corpuscular Volume 91.6 fL (78.0-98.0); Mean Platelet Volume 8.3 fL (7.4-10.4); Platelet Count 262 thou/uL (130-400); RBC Distribution Width 15.1 % (11.5-14.5); Red Blood Cell (RBC) Count 4.66 mill/uL (4.20-5.40); White Blood Cell (WBC) Count 6.3 thou/uL (4.8-10.8)
== END 2020-08-06 14:23 | disposition home or self-care (01) ==
LOC: MADLAB 14:22
PROVIDERS: ATTEND Nurse Practitioner Acute Care
DX: D50.0 Iron deficiency anemia secondary to blood loss (chronic) (principal); I82.492 Acute embolism and thrombosis of other specified deep vein of left lower extremity
CPT/HCPCS: 82728; 85025

== ENCOUNTER 2020-10-08 12:07 | Outpatient (CLI) | payer MEDICARE ==
[2020-10-08 14:23] LABS: #Lymphocytes 1.3 thou/uL (1.20-3.40); #Monocytes 0.6 thou/uL (0.11-0.59); #Neutrophils 5.5 thou/uL (1.40-6.50); %Basophils 0.3 % (0.0-1.0); %Eosinophils 0.6 % (0.0-10.0); %Lymphocytes 17.3 % (21.0-51.0); %Monocytes 8.2 % (0.0-10.0); %Neutrophils 73.7 % (42.0-75.0); Hemoglobin 14.3 g/dL (12.0-16.0); Mean Corpuscular HGB CONC 32.9 g/dL (32.0-36.0); Mean Corpuscular Hemoglobin 29.3 pg (27.0-31.0); Mean Corpuscular Volume 89.1 fL (78.0-98.0); Mean Platelet Volume 8.2 fL (7.4-10.4); Platelet Count 222 thou/uL (130-400); RBC Distribution Width 13.2 % (11.5-14.5); Red Blood Cell (RBC) Count 4.87 mill/uL (4.20-5.40); White Blood Cell (WBC) Count 7.4 thou/uL (4.8-10.8)
== END 2020-10-08 12:08 | disposition home or self-care (01) ==
LOC: MADLAB 12:07
PROVIDERS: ATTEND Nurse Practitioner Acute Care
DX: I10 Essential (primary) hypertension (principal)
CPT/HCPCS: 82728; 85025

== ENCOUNTER 2020-10-13 12:04 | Outpatient (CLI) | payer MEDICARE | END 2020-10-13 12:05 | disposition home or self-care (01) | LOC: MADEKG 12:04 | PROVIDERS: ATTEND Internal Medicine Cardiovascular Disease | DX: I48.0 Paroxysmal atrial fibrillation (principal) | CPT/HCPCS: 93005; 93010 ==

== ENCOUNTER 2020-10-17 09:58 | Emergency (ER) | payer MEDICARE ==
[2020-10-17] MEDS ORDERED: Sodium Chloride 0.9% 500 ML ONE (10:37)
--- NOTE | 2020-10-17 10:39 | RAD ---
XR Chest 1 View Portable HISTORY: Chest pain COMPARISON: 05/10/2020 FINDINGS: The heart size is at upper limits of normal. The aorta is tortuous. The lungs are well expa nded without focal areas of consolidation, pneumothorax or pleural effusions. There are postop changes in the left proximal humerus IMPRESSION: No radiographic evidence of acute cardiopulmonary process.
[2020-10-17 10:43] LABS: INR-International Normal Ratio 0.9; PTT 31.6 sec (22.9-36.1); Prothrombin Time 12.7 sec (12.0-14.7)
[2020-10-17 10:48] LABS: %Lymphocytes 14.2 % (21.0-51.0); %Neutrophils 75.2 % (42.0-75.0); Hemoglobin 14.9 g/dL (12.0-16.0); Mean Corpuscular Hemoglobin 28.6 pg (27.0-31.0); Mean Corpuscular Volume 89.3 fL (78.0-98.0); Mean Platelet Volume 8.6 fL (7.4-10.4); Platelet Count 232 thou/uL (130-400); Red Blood Cell (RBC) Count 5.23 mill/uL (4.20-5.40); White Blood Cell (WBC) Count 10.7 thou/uL (4.8-10.8)
[2020-10-17 10:49] LABS: #Lymphocytes 1.5 thou/uL (1.20-3.40); #Monocytes 1.1 thou/uL (0.11-0.59); %Basophils 0.4 % (0.0-1.0); %Eosinophils 0.4 % (0.0-10.0); %Monocytes 9.8 % (0.0-10.0)
[2020-10-17 10:51] LABS: ALT (SGPT) 27 U/L (8-55); AST (SGOT) 18 U/L (5-34); Albumin 4.1 g/dL (3.4-4.8); Alkaline Phosphatase 63 U/L (40-110); Anion Gap 16 mmol/L (10-20); BUN (Urea Nitrogen) 14 mg/dL (9.8-20.1); Bilirubin, Total 0.4 mg/dL (0.2-1.2); Calc. Creatinine Clearance 0 mL/min (70-130); Calcium 9.6 mg/dL (7.8-10.44); Carbon Dioxide 24 mmol/L (23-31); Chloride 106 mmol/L (98-107); Globulin 2.9 g/dL (2.4-3.5); Glucose 109 mg/dL (83-110); Sodium 142 mmol/L (136-145)
== END 2020-10-17 13:48 | disposition home or self-care (01) ==
LOC: MADERS 09:58
DX: I48.91 Unspecified atrial fibrillation (principal); E78.5 Hyperlipidemia, unspecified; E78.00 Pure hypercholesterolemia, unspecified; I10 Essential (primary) hypertension; D64.9 Anemia, unspecified; Z85.3 Personal history of malignant neoplasm of breast; Z86.711 Personal history of pulmonary embolism; Z87.442 Personal history of urinary calculi; Z86.718 Personal history of other venous thrombosis and embolism; Z87.891 Personal history of nicotine dependence; Z79.899 Other long term (current) drug therapy
CPT/HCPCS: 71045; 80053; 83880; 84484; 85025; 85610; 85730; 93005; J7030

== ENCOUNTER 2020-11-01 06:59 | Emergency (ER) | payer MEDICARE ==
[2020-11-01] MEDS ORDERED: HYDROmorphone 0.5 MG/0.5 ML SYRINGE ONE ×2 (07:51→09:42)
[2020-11-01 07:54] LABS: Bilirubin Negative (Negative); Blood, Urine Trace (Negative); Clarity Slightly Cloudy (Clear); Glucose, Urine (Dipstick) Negative (Negative); Ketone, Urine Negative (Negative); Leukocyte Trace (Negative); Nitrite Positive (Negative); Protein, Urine (Dipstick) Negative (Neg-Trace); Specific Gravity, Urine 1.025 (1.005-1.030); Urobilinogen 0.2 mg/dL (Less than 2)
[2020-11-01 07:59] LABS: #Basophils 0.1 thou/uL (0.0-0.2); #Lymphocytes 1.1 thou/uL (1.20-3.40); #Monocytes 1.1 thou/uL (0.11-0.59); #Neutrophils 9.3 thou/uL (1.40-6.50); %Basophils 0.6 % (0.0-1.0); %Eosinophils 0.3 % (0.0-10.0); %Lymphocytes 9.3 % (21.0-51.0); %Monocytes 9.6 % (0.0-10.0); %Neutrophils 80.2 % (42.0-75.0); Hemoglobin 13.6 g/dL (12.0-16.0); Mean Corpuscular HGB CONC 33.2 g/dL (32.0-36.0); Mean Corpuscular Hemoglobin 28.9 pg (27.0-31.0); Mean Corpuscular Volume 87.2 fL (78.0-98.0); Mean Platelet Volume 8.5 fL (7.4-10.4); Platelet Count 194 thou/uL (130-400); RBC Distribution Width 12.5 % (11.5-14.5); Red Blood Cell (RBC) Count 4.72 mill/uL (4.20-5.40); White Blood Cell (WBC) Count 11.5 thou/uL (4.8-10.8)
[2020-11-01 08:01] LABS: Bacteria/HPF 4+ HPF (None Seen); RBC/HPF 0-3 HPF (0-3); Squamous Epithelial 0-3 HPF (0-3)
[2020-11-01 08:13] LABS: ALT (SGPT) 21 U/L (8-55); AST (SGOT) 14 U/L (5-34); Albumin 3.9 g/dL (3.4-4.8); Alkaline Phosphatase 56 U/L (40-110); Anion Gap 13 mmol/L (10-20); BUN (Urea Nitrogen) 13 mg/dL (9.8-20.1); Bilirubin, Total 0.8 mg/dL (0.2-1.2); Calc. Creatinine Clearance 0 mL/min (70-130); Calcium 9.1 mg/dL (7.8-10.44); Carbon Dioxide 24 mmol/L (23-31); Chloride 104 mmol/L (98-107); Globulin 2.7 g/dL (2.4-3.5); Glucose 107 mg/dL (83-110); Lipase 24 U/L (8-78); Potassium 3.9 mmol/L (3.5-5.1); Protein, Total 6.6 g/dL (5.8-8.1); Sodium 137 mmol/L (136-145)
[2020-11-01] MEDS ORDERED: Levofloxacin 500 mg/D5W 100 ml Premix Bag ONE (09:43)
[2020-11-01] MEDS ORDERED: metroNIDAZOLE 500 MG/100 ML BAG ONE (09:43)
--- NOTE | 2020-11-01 10:26 | CT ---
CT ABDOMEN AND PELVIS: Date: 11/01/2020 PROVIDED CLINICAL HISTORY: Left lower quadrant pain. FINDINGS: Comparison with 11/24/2019. A moderate hiatal hernia is redemonstrated. The visualized lung bases are free of significant opacity . There is a stable hypodensity involving the left hepatic lobe compatible with cyst. The solid abdomin al organs are suboptimally evaluated in the absence of IV contrast material that demonstrate a stable unenhanced CT appearance, also including bilateral adrenal adenomas. There is conspicuous sigmoid colonic diverticulosis. There is focal mural thickening and surrounding fat stranding involving the proximal sigmoid colon. There is no evidence for extraluminal gas or a fo jayden fluid collection. There is no evidence for bowel obstruction, additional fat stranding, free intr aperitoneal fluid, or free intraperitoneal air. Changes of prior cholecystectomy are seen. There is no evidence for appendicitis. Vascular calcifications are noted. The osseous structures demonstrate no concerning lytic or blastic lesion. Remote compression deformit y involving L2. IMPRESSION: Findings compatible with uncomplicated sigmoid diverticulitis. POS: FERNANDA
== END 2020-11-01 10:55 | disposition home or self-care (01) ==
LOC: MADERS 06:59
DX: K57.32 Diverticulitis of large intestine without perforation or abscess without bleeding (principal); N39.0 Urinary tract infection, site not specified; E03.9 Hypothyroidism, unspecified; E78.5 Hyperlipidemia, unspecified; Z86.718 Personal history of other venous thrombosis and embolism; Z87.891 Personal history of nicotine dependence; Z79.899 Other long term (current) drug therapy
CPT/HCPCS: 74176; 80053; 81003; 81015; 83690; 85025; 96365; 96368; 96375; 96376; J1170; J1956

== ENCOUNTER 2020-11-03 16:50 | Outpatient (CLI) | payer MEDICARE ==
[2020-11-03 18:37] LABS: #Eosinphils 0.1 thou/uL (0.0-0.7); #Lymphocytes 0.9 thou/uL (1.20-3.40); #Monocytes 0.7 thou/uL (0.11-0.59); #Neutrophils 4.5 thou/uL (1.40-6.50); %Basophils 0.4 % (0.0-1.0); %Eosinophils 1.2 % (0.0-10.0); %Lymphocytes 14.2 % (21.0-51.0); %Monocytes 11.9 % (0.0-10.0); %Neutrophils 72.3 % (42.0-75.0); Hemoglobin 12.4 g/dL (12.0-16.0); Mean Corpuscular HGB CONC 31.4 g/dL (32.0-36.0); Mean Corpuscular Hemoglobin 28.1 pg (27.0-31.0); Mean Corpuscular Volume 89.3 fL (78.0-98.0); Mean Platelet Volume 8.6 fL (7.4-10.4); Platelet Count 221 thou/uL (130-400); RBC Distribution Width 12.6 % (11.5-14.5); Red Blood Cell (RBC) Count 4.42 mill/uL (4.20-5.40); White Blood Cell (WBC) Count 6.2 thou/uL (4.8-10.8)
== END 2020-11-03 16:51 | disposition home or self-care (01) ==
LOC: MADLAB 16:50
PROVIDERS: ATTEND Nurse Practitioner Acute Care
DX: Z08 Encounter for follow-up examination after completed treatment for malignant neoplasm (principal); Z85.3 Personal history of malignant neoplasm of breast
CPT/HCPCS: 82728; 85025

== ENCOUNTER 2020-12-01 16:34 | Outpatient (CLI) | payer MEDICARE ==
[2020-12-01 17:13] LABS: #Eosinphils 0.1 thou/uL (0.0-0.7); #Lymphocytes 2.1 thou/uL (1.20-3.40); #Monocytes 0.7 thou/uL (0.11-0.59); #Neutrophils 5.6 thou/uL (1.40-6.50); %Basophils 0.6 % (0.0-1.0); %Eosinophils 0.6 % (0.0-10.0); %Lymphocytes 24.7 % (21.0-51.0); %Monocytes 8.5 % (0.0-10.0); %Neutrophils 65.6 % (42.0-75.0); Hemoglobin 14.3 g/dL (12.0-16.0); Mean Corpuscular HGB CONC 31.5 g/dL (32.0-36.0); Mean Corpuscular Hemoglobin 28.4 pg (27.0-31.0); Mean Corpuscular Volume 90.1 fL (78.0-98.0); Mean Platelet Volume 8.1 fL (7.4-10.4); Platelet Count 182 thou/uL (130-400); RBC Distribution Width 12.8 % (11.5-14.5); Red Blood Cell (RBC) Count 5.03 mill/uL (4.20-5.40); White Blood Cell (WBC) Count 8.5 thou/uL (4.8-10.8)
== END 2020-12-01 16:35 | disposition home or self-care (01) ==
LOC: MADLABSP 16:34
PROVIDERS: ATTEND Family Medicine
DX: N39.0 Urinary tract infection, site not specified (principal); I10 Essential (primary) hypertension
CPT/HCPCS: 82728; 85025

== ENCOUNTER 2021-01-02 15:16 | Outpatient (CLI) | payer MEDICARE ==
[2021-01-02 15:37] LABS: #Eosinphils 0.1 thou/uL (0.0-0.7); #Lymphocytes 1.7 thou/uL (1.20-3.40); #Monocytes 0.8 thou/uL (0.11-0.59); #Neutrophils 6.2 thou/uL (1.40-6.50); %Basophils 0.3 % (0.0-1.0); %Eosinophils 0.6 % (0.0-10.0); %Lymphocytes 19.1 % (21.0-51.0); %Monocytes 9.2 % (0.0-10.0); %Neutrophils 70.8 % (42.0-75.0); Mean Corpuscular HGB CONC 31.8 g/dL (32.0-36.0); Mean Corpuscular Hemoglobin 28.2 pg (27.0-31.0); Mean Corpuscular Volume 88.5 fL (78.0-98.0); Mean Platelet Volume 9.3 fL (7.4-10.4); Platelet Count 188 thou/uL (130-400); RBC Distribution Width 12.9 % (11.5-14.5); Red Blood Cell (RBC) Count 5.32 mill/uL (4.20-5.40); White Blood Cell (WBC) Count 8.7 thou/uL (4.8-10.8)
[2021-01-03 01:36] LABS: Follow-up Chemistry Comp? YES; Follow-up Result - Chemistry REPORT FAXED
== END 2021-01-02 15:17 | disposition home or self-care (01) ==
LOC: MADLAB 15:16
PROVIDERS: ATTEND Nurse Practitioner Acute Care
DX: D50.9 Iron deficiency anemia, unspecified (principal); Z85.3 Personal history of malignant neoplasm of breast
CPT/HCPCS: 82728; 85025

== ENCOUNTER 2021-01-15 09:33 | Emergency (ER) | payer MEDICARE | END 2021-01-15 10:15 | disposition home or self-care (01) | LOC: MADERS 09:33 | DX: R00.0 Tachycardia, unspecified (principal); E03.9 Hypothyroidism, unspecified; E78.5 Hyperlipidemia, unspecified; E78.00 Pure hypercholesterolemia, unspecified; I10 Essential (primary) hypertension; D64.9 Anemia, unspecified; Z86.718 Personal history of other venous thrombosis and embolism; Z86.711 Personal history of pulmonary embolism; Z79.899 Other long term (current) drug therapy; Z87.891 Personal history of nicotine dependence ==

== ENCOUNTER 2021-01-20 16:09 | Emergency (ER) | payer MEDICARE ==
[2021-01-20] MEDS ORDERED: Clindamycin 150 MG CAP ONE (16:55)
== END 2021-01-20 17:55 | disposition home or self-care (01) ==
LOC: MADERS 16:09
DX: L03.114 Cellulitis of left upper limb (principal); E03.9 Hypothyroidism, unspecified; E78.5 Hyperlipidemia, unspecified; E78.00 Pure hypercholesterolemia, unspecified; I10 Essential (primary) hypertension; Z85.3 Personal history of malignant neoplasm of breast; D64.9 Anemia, unspecified; Z86.711 Personal history of pulmonary embolism; Z86.718 Personal history of other venous thrombosis and embolism; Z87.442 Personal history of urinary calculi; Z79.899 Other long term (current) drug therapy
CPT/HCPCS: 99283

== ENCOUNTER 2021-02-02 15:13 | Outpatient (CLI) | payer MEDICARE ==
[2021-02-02 16:05] LABS: #Eosinphils 0.1 thou/uL (0.0-0.7); #Lymphocytes 1.3 thou/uL (1.20-3.40); #Monocytes 0.5 thou/uL (0.11-0.59); #Neutrophils 5.8 thou/uL (1.40-6.50); %Basophils 0.3 % (0.0-1.0); %Eosinophils 0.7 % (0.0-10.0); %Lymphocytes 16.9 % (21.0-51.0); %Monocytes 6.6 % (0.0-10.0); %Neutrophils 75.4 % (42.0-75.0); Hemoglobin 13.7 g/dL (12.0-16.0); Mean Corpuscular Hemoglobin 28.4 pg (27.0-31.0); Mean Corpuscular Volume 91.8 fL (78.0-98.0); Mean Platelet Volume 9.5 fL (7.4-10.4); Platelet Count 210 thou/uL (130-400); RBC Distribution Width 13.4 % (11.5-14.5); Red Blood Cell (RBC) Count 4.83 mill/uL (4.20-5.40); White Blood Cell (WBC) Count 7.7 thou/uL (4.8-10.8)
[2021-02-03 04:46] LABS: Follow-up Chemistry Comp? YES; Follow-up Result - Chemistry REPORT FAXED
== END 2021-02-02 15:14 | disposition home or self-care (01) ==
LOC: MADLAB 15:13
DX: D50.9 Iron deficiency anemia, unspecified (principal); I10 Essential (primary) hypertension
CPT/HCPCS: 82728; 85025

== ENCOUNTER 2021-06-04 14:05 | Outpatient (CLI) | payer MEDICARE ==
[2021-06-04 14:31] LABS: #Eosinphils 0.1 thou/uL (0.0-0.7); #Lymphocytes 2.4 thou/uL (1.20-3.40); #Monocytes 0.9 thou/uL (0.11-0.59); %Basophils 0.4 % (0.0-1.0); %Eosinophils 0.5 % (0.0-10.0); %Lymphocytes 22.9 % (21.0-51.0); %Monocytes 8.6 % (0.0-10.0); %Neutrophils 67.6 % (42.0-75.0); Hemoglobin 13.9 g/dL (12.0-16.0); Mean Corpuscular HGB CONC 31.3 g/dL (32.0-36.0); Mean Corpuscular Hemoglobin 28.4 pg (27.0-31.0); Mean Corpuscular Volume 90.8 fL (78.0-98.0); Platelet Count 255 thou/uL (130-400); RBC Distribution Width 13.3 % (11.5-14.5); Red Blood Cell (RBC) Count 4.89 mill/uL (4.20-5.40); White Blood Cell (WBC) Count 10.3 thou/uL (4.8-10.8)
== END 2021-06-04 14:06 | disposition home or self-care (01) ==
LOC: MADLAB 14:05
PROVIDERS: ATTEND Nurse Practitioner Acute Care
DX: D50.9 Iron deficiency anemia, unspecified (principal)
CPT/HCPCS: 82728; 85025

== ENCOUNTER 2021-06-29 14:00 | Outpatient (CLI) | payer MEDICARE ==
[2021-06-29 16:23] LABS: Bilirubin Negative (Negative); Blood, Urine Trace (Negative); Clarity Turbid (Clear); Glucose, Urine (Dipstick) Negative (Negative); Ketone, Urine Trace mg/dL (Negative); Leukocyte Negative (Negative); Nitrite Negative (Negative); Protein, Urine (Dipstick) Negative (Neg-Trace); Specific Gravity, Urine 1.025 (1.005-1.030); Urobilinogen 0.2 mg/dL (Less than 2); pH, Urine 5.5 (5.0-9.0)
[2021-06-29 16:32] LABS: Bacteria/HPF 4+ HPF (None Seen); RBC/HPF 0-3 HPF (0-3); Squamous Epithelial 0-3 HPF (0-3)
== END 2021-06-29 14:01 | disposition home or self-care (01) ==
LOC: MADLAB 14:00
PROVIDERS: ATTEND Family Medicine
DX: F05 Delirium due to known physiological condition (principal)
CPT/HCPCS: 81001; 87077; 87086; 87186

== ENCOUNTER 2021-07-01 14:05 | Outpatient (CLI) | payer MEDICARE ==
[2021-07-01 14:18] LABS: #Eosinphils 0.1 thou/uL (0.0-0.7); #Lymphocytes 1.4 thou/uL (1.20-3.40); #Monocytes 0.6 thou/uL (0.11-0.59); #Neutrophils 5.8 thou/uL (1.40-6.50); %Basophils 0.4 % (0.0-1.0); %Eosinophils 1.2 % (0.0-10.0); %Lymphocytes 17.1 % (21.0-51.0); %Monocytes 7.5 % (0.0-10.0); %Neutrophils 73.8 % (42.0-75.0); Mean Corpuscular HGB CONC 30.9 g/dL (32.0-36.0); Mean Corpuscular Hemoglobin 28.1 pg (27.0-31.0); Mean Corpuscular Volume 90.9 fL (78.0-98.0); Mean Platelet Volume 7.9 fL (7.4-10.4); Platelet Count 226 thou/uL (130-400); RBC Distribution Width 13.2 % (11.5-14.5); Red Blood Cell (RBC) Count 4.64 mill/uL (4.20-5.40); White Blood Cell (WBC) Count 7.9 thou/uL (4.8-10.8)
== END 2021-07-01 14:06 | disposition home or self-care (01) ==
LOC: MADLAB 14:05
PROVIDERS: ATTEND Nurse Practitioner Acute Care
DX: D50.0 Iron deficiency anemia secondary to blood loss (chronic) (principal); I82.492 Acute embolism and thrombosis of other specified deep vein of left lower extremity
CPT/HCPCS: 82728; 85025

== ENCOUNTER 2021-08-31 13:18 | Outpatient (CLI) | payer MEDICARE ==
[2021-08-31 14:15] LABS: #Eosinphils 0.1 thou/uL (0.0-0.7); #Lymphocytes 1.4 thou/uL (1.20-3.40); #Monocytes 0.7 thou/uL (0.11-0.59); #Neutrophils 5.8 thou/uL (1.40-6.50); %Basophils 0.3 % (0.0-1.0); %Eosinophils 0.7 % (0.0-10.0); %Lymphocytes 17.5 % (21.0-51.0); %Monocytes 9.2 % (0.0-10.0); %Neutrophils 72.4 % (42.0-75.0); Hemoglobin 13.4 g/dL (12.0-16.0); Mean Corpuscular HGB CONC 30.9 g/dL (32.0-36.0); Mean Corpuscular Hemoglobin 27.8 pg (27.0-31.0); Mean Corpuscular Volume 89.8 fL (78.0-98.0); Mean Platelet Volume 8.2 fL (7.4-10.4); Platelet Count 230 thou/uL (130-400); RBC Distribution Width 13.8 % (11.5-14.5); Red Blood Cell (RBC) Count 4.84 mill/uL (4.20-5.40)
== END 2021-08-31 13:19 | disposition home or self-care (01) ==
LOC: MADLAB 13:18
PROVIDERS: ATTEND Nurse Practitioner Acute Care
DX: D50.9 Iron deficiency anemia, unspecified (principal); I10 Essential (primary) hypertension; I48.0 Paroxysmal atrial fibrillation; K57.93 Diverticulitis of intestine, part unspecified, without perforation or abscess with bleeding
CPT/HCPCS: 82728; 85025

== ENCOUNTER 2021-09-29 14:37 | Outpatient (CLI) | payer MEDICARE ==
[2021-09-29 17:27] LABS: #Eosinphils 0.1 thou/uL (0.0-0.7); #Lymphocytes 1.5 thou/uL (1.20-3.40); #Monocytes 0.6 thou/uL (0.11-0.59); #Neutrophils 5.7 thou/uL (1.40-6.50); %Basophils 0.3 % (0.0-1.0); %Eosinophils 0.7 % (0.0-10.0); %Lymphocytes 18.8 % (21.0-51.0); %Neutrophils 73.2 % (42.0-75.0); Hemoglobin 13.4 g/dL (12.0-16.0); Mean Corpuscular HGB CONC 32.3 g/dL (32.0-36.0); Mean Corpuscular Hemoglobin 27.9 pg (27.0-31.0); Mean Corpuscular Volume 86.5 fL (78.0-98.0); Mean Platelet Volume 7.1 fL (7.4-10.4); Platelet Count 197 thou/uL (130-400); Red Blood Cell (RBC) Count 4.81 mill/uL (4.20-5.40); White Blood Cell (WBC) Count 7.8 thou/uL (4.8-10.8)
[2021-09-30 04:20] LABS: Follow-up Chemistry Comp? YES; Follow-up Result - Chemistry REPORT FAXED
== END 2021-09-29 14:38 | disposition home or self-care (01) ==
LOC: MADLAB 14:37
PROVIDERS: ATTEND Nurse Practitioner Acute Care
DX: D50.9 Iron deficiency anemia, unspecified (principal)
CPT/HCPCS: 82728; 85025

== ENCOUNTER 2021-10-28 11:06 | Outpatient (CLI) | payer MEDICARE ==
[2021-10-28 11:32] LABS: #Eosinphils 0.1 thou/uL (0.0-0.7); #Monocytes 0.5 thou/uL (0.11-0.59); #Neutrophils 4.3 thou/uL (1.40-6.50); %Basophils 0.4 % (0.0-1.0); %Lymphocytes 17.1 % (21.0-51.0); %Monocytes 8.1 % (0.0-10.0); %Neutrophils 73.3 % (42.0-75.0); Hemoglobin 13.1 g/dL (12.0-16.0); Mean Corpuscular HGB CONC 31.3 g/dL (32.0-36.0); Mean Corpuscular Hemoglobin 27.3 pg (27.0-31.0); Mean Platelet Volume 8.5 fL (7.4-10.4); Platelet Count 203 thou/uL (130-400); RBC Distribution Width 13.2 % (11.5-14.5); Red Blood Cell (RBC) Count 4.79 mill/uL (4.20-5.40); White Blood Cell (WBC) Count 5.8 thou/uL (4.8-10.8)
== END 2021-10-28 11:07 | disposition home or self-care (01) ==
LOC: MADLAB 11:06
PROVIDERS: ATTEND Nurse Practitioner Acute Care
DX: D50.9 Iron deficiency anemia, unspecified (principal)
CPT/HCPCS: 82728; 85025

== ENCOUNTER 2021-12-21 13:09 | Outpatient (CLI) | payer MEDICARE ==
[2021-12-21 13:19] LABS: #Eosinphils 0.1 thou/uL (0.0-0.7); #Lymphocytes 1.5 thou/uL (1.20-3.40); #Monocytes 0.7 thou/uL (0.11-0.59); #Neutrophils 6.4 thou/uL (1.40-6.50); %Basophils 0.3 % (0.0-1.0); %Eosinophils 0.6 % (0.0-10.0); %Lymphocytes 17.5 % (21.0-51.0); %Monocytes 7.8 % (0.0-10.0); %Neutrophils 73.9 % (42.0-75.0); Hemoglobin 13.8 g/dL (12.0-16.0); Mean Corpuscular HGB CONC 31.4 g/dL (32.0-36.0); Mean Corpuscular Hemoglobin 27.7 pg (27.0-31.0); Mean Corpuscular Volume 88.1 fL (78.0-98.0); Mean Platelet Volume 7.9 fL (7.4-10.4); Platelet Count 238 thou/uL (130-400); RBC Distribution Width 14.6 % (11.5-14.5); Red Blood Cell (RBC) Count 4.97 mill/uL (4.20-5.40); White Blood Cell (WBC) Count 8.7 thou/uL (4.8-10.8)
== END 2021-12-21 13:10 | disposition home or self-care (01) ==
LOC: MADLAB 13:09
PROVIDERS: ATTEND Family Medicine
DX: D50.9 Iron deficiency anemia, unspecified (principal)
CPT/HCPCS: 82728; 85025